=== PATIENT | male | born 1950 | race Caucasian/White ===

== ENCOUNTER 2020-05-26 20:20 | Inpatient (IN) | payer BC ==
[~2020-05-26] VITALS: Ht 167.6 cm; Wt 72.6 kg
[2020-05-26] MEDS ORDERED: ACCU-CHEK COMFORT CURVE STRIP VI ONE (20:45)
[2020-05-26 22:26] LABS: Basophils # (auto) 0 10 ^3/uL (0-0.2); Basophils % (auto) 0.4 % (0.0-2.0); Eosinophils # (auto) 0 10 ^3/uL (0-0.8); Eosinophils % (auto) 0.1 % (0.0-7.0); Hematocrit 39.9 % (41.0-53.0); Hemoglobin 13.1 g/dL (13.5-17.5); Lymphocytes # (auto) 0.7 10 ^3/uL (0.4-5.4); Lymphocytes % (auto) 6.1 % (10.0-50.0); Mean Corpuscular Hemoglobin 31.2 pg (28.0-32.0); Mean Corpuscular Hgb Conc. 32.8 g/dL (32.0-36.0); Monocytes # (auto) 0.5 10 ^3/uL (0-1.3); Monocytes % (auto) 4.7 % (0.0-12.0); Neutrophils # (auto) 9.6 10 ^3/uL (1.6-8.6); Neutrophils % (auto) 88.7 % (37.0-80.0); Platelet Count (auto) 349 10^3/uL (140-450); Red Cell Distribution Width 15.8 % (11.8-14.3); White Blood Cell 10.8 10^3/uL (4.4-10.8)
[2020-05-26 22:46] LABS: Albumin 2.2 g/dL (3.4-5.0); Calcium 8.9 mg/dL (8.5-10.1); Potassium 4.7 mmol/L (3.5-5.1)
[2020-05-26 22:50] LABS: BUN/Creatinine Ratio 20.9; Bilirubin, Total 0.2 mg/dL (0.2-1.0); Total Protein 7.5 g/dL (6.4-8.2)
[2020-05-26] MEDS ORDERED: LIDOCAINE 1% HCL (LOCAL ANESTH.) INJ 20ML MDV ONE (22:56)
[2020-05-26] MEDS ORDERED: BACITRACIN TOP OINT 1 UD PKG TOP ONE (22:59)
[2020-05-26] MEDS ORDERED: NEOMYCIN-BACITRACIN-POLYM UNITDOSE PKG TOP OINT TOP ONE (23:00)
[2020-05-26 23:57] LABS: INR 1.14 (0.9-1.15); Partial Thromboplastin Time 29.9 sec (23.0-31.2)
[2020-05-27] MEDS ORDERED: DOCUSATE SOD 100 MG CAP PO PRN (01:30)
[2020-05-27] MEDS ORDERED: MORPHINE SULF INJ 2 MG/ML SYRINGE 1ML IV PRN (01:30)
[2020-05-27] MEDS ORDERED: ONDANSETRON HCL 4 MG/2 ML VIAL IV PRN (01:30)
[2020-05-27] MEDS ORDERED: NITROGLYCERIN 0.4 MG SL TAB SL PRN (01:30)
[2020-05-27] MEDS ORDERED: ACETAMINOPHEN 325 MG TAB PO PRN (01:30)
[2020-05-27] MEDS ORDERED: HYDROcodone-ACET 5/325MG TAB PO PRN (01:30)
[2020-05-27] MEDS ORDERED: MORPHINE SULFATE 4 MG/ML SYR/VIAL IV PRN (01:30)
[2020-05-27] MEDS ORDERED: BACITRACIN TOP OINT 1 UD PKG TOP ONE (02:45)
[2020-05-27] MEDS ORDERED: LIDOCAINE 1% HCL (LOCAL ANESTH.) INJ 20ML MDV ID ONE (02:45)
[2020-05-27] MEDS: SODIUM CHLOR 0.9% PF (SALINE LOCK) 10ML VIAL/SYR IV SCH ×3 (06:00→22:31)
[2020-05-27] MEDS: NEOMYCIN-BACITRACIN-POLYM 15GM TOP OINT TOP SCH ×3 (06:45→22:32)
[2020-05-27] MEDS: ASCORBIC ACID 500 MG TAB PO SCH ×2 (13:46→22:32)
[2020-05-27] MEDS: MULTIPLE VITAMIN TAB PO SCH (13:47)
[2020-05-27] MEDS: ZINC SULFATE 220mg CAP or TAB PO SCH (13:47)
[2020-05-27] MEDS: FAMOTIDINE 20 MG TAB PO SCH ×2 (13:47→22:32)
--- NOTE | 2020-05-27 18:53 | NUR ---
WOUND CARE NOTE: IN TO SEE PATIENT PER WOUND CARE CONSULT REQUEST. PATIENT IN ER BED 23, TELE STATUS, AWAITING AVAILABLE BED. [facility] WITH DIAGNOSIS OF SYNCOPE. HE IS S/P MECHANICAL FALL, RENDERING PATIENT WITH A LACERATION TO THE LEFT PERIORBITAL EYE. LACERATION IS WELL APPROXIMATED, SUTURED CLOSED. THERE IS NO DRAINAGE NOTED, LEFT OPEN TO AIR. SKIN/WOUND CARE PLAN IMPLEMENTED D/T ALEXANDR SCORE OF 15. RECOMMEND: Q SHIFT WOUND MONITORING OF SUTURED LACERATION TO LEFT PERORBITAL EYE, LEAVE OPEN TO AIR. NO FURTHER WOUND CARE MONITORING NEEDED AT THIS TIME. Addendum: 05/27/20 at 1856 by Marlen Colbert RN Amended: Links added.
[2020-05-27 23:39] LABS: % Iron Saturation 14.5 % (20-55)
[2020-05-27 23:47] LABS: Ferritin 927.5 ng/mL (10-322)
[2020-05-28] MEDS: NEOMYCIN-BACITRACIN-POLYM 15GM TOP OINT TOP SCH ×3 (06:00→22:24)
[2020-05-28] MEDS: SODIUM CHLOR 0.9% PF (SALINE LOCK) 10ML VIAL/SYR IV SCH ×3 (06:15→22:24)
[2020-05-28 07:12] LABS: Basophils # (auto) 0 10 ^3/uL (0-0.2); Basophils % (auto) 0.2 % (0.0-2.0); Eosinophils # (auto) 0 10 ^3/uL (0-0.8); Eosinophils % (auto) 0.1 % (0.0-7.0); Hematocrit 38.4 % (41.0-53.0); Hemoglobin 12.4 g/dL (13.5-17.5); Lymphocytes # (auto) 1.3 10 ^3/uL (0.4-5.4); Lymphocytes % (auto) 11.9 % (10.0-50.0); Mean Corpuscular Hemoglobin 30.7 pg (28.0-32.0); Mean Corpuscular Hgb Conc. 32.3 g/dL (32.0-36.0); Monocytes # (auto) 0.8 10 ^3/uL (0-1.3); Monocytes % (auto) 7.4 % (0.0-12.0); Neutrophils # (auto) 8.8 10 ^3/uL (1.6-8.6); Neutrophils % (auto) 80.4 % (37.0-80.0); Platelet Count (auto) 294 10^3/uL (140-450); Red Blood Cells 4.04 10^6/uL (4.5-5.90); Red Cell Distribution Width 15.8 % (11.8-14.3); White Blood Cell 10.9 10^3/uL (4.4-10.8)
[2020-05-28 07:27] LABS: Calcium 8.6 mg/dL (8.5-10.1); Magnesium 2.7 mg/dL (1.6-2.6); Potassium 4.1 mmol/L (3.5-5.1)
[2020-05-28 07:31] LABS: BUN/Creatinine Ratio 21.7; Bilirubin, Total 0.4 mg/dL (0.2-1.0); Total Protein 6.6 g/dL (6.4-8.2)
[2020-05-28] MEDS ORDERED: LORazepam 2MG/ML-1ML VIAL IV PRN (08:30)
[2020-05-28] MEDS: GABAPENTIN 100 MG CAP PO SCH ×2 (08:30→22:23)
[2020-05-28] MEDS: MULTIPLE VITAMIN TAB PO SCH (09:51)
[2020-05-28] MEDS: FAMOTIDINE 20 MG TAB PO SCH ×2 (09:51→22:23)
[2020-05-28] MEDS: ZINC SULFATE 220mg CAP or TAB PO SCH (09:51)
[2020-05-28] MEDS: ASCORBIC ACID 500 MG TAB PO SCH ×2 (09:51→22:23)
[2020-05-28] MEDS ORDERED: GABAPENTIN 100 MG CAP PO SCH (10:00)
[2020-05-28 10:31] LABS: Folate (Folic Acid) 15.92 ng/mL (5.38-24)
[2020-05-28 11:00] VITALS: BP 114/69
[2020-05-28 12:00] VITALS: BP 90/55
--- NOTE | 2020-05-28 12:27 | NUR ---
MD TOTH PAGED PER HIS CONSULTATION. I SPOKE WITH BENJAMIN FROM HIS [employer]. Addendum: 05/28/20 at 1229 by PRICILA BROWN RN Amended: Links added.
[2020-05-28 13:00] VITALS: BP 93/46
[2020-05-28] MEDS ORDERED: ATROPINE SULF 1 MG/10ml SYR IV ONE (13:30)
[2020-05-28 15:00] VITALS: BP 102/56
--- NOTE | 2020-05-28 20:05 | NUR ---
Telemetry admit from BALAJI MCKAY admitted to Telemetry unit after telephone report received. Patient oriented to Anisa Fernandez, primary RN, unit, room, bed, and unit policies regarding patient care and visiting hours. Patient now on continuous telemetry monitoring, tele box # 65 and telemetry reading on arrival to unit is sinus 63. Patient placed on bedside oxygen, weighed by bedscale and encouraged to call if they need something. All questions and concerns addressed, patient verbalized understanding. Note:
[2020-05-28 20:30] VITALS: BP 100/61
[2020-05-28 22:00] VITALS: BP 100/61
[2020-05-29] MEDS ORDERED: PNEUMOCOCCAL VACC POLYS 25 MCG/0.5 ML VIAL IM ONE (03:30)
[2020-05-29] MEDS ORDERED: INFLUENZA QUAD 2020-2021 0.5 ML SYRG IM ONE (03:30)
[2020-05-29 05:00] VITALS: BP 97/62
[2020-05-29] MEDS: NEOMYCIN-BACITRACIN-POLYM 15GM TOP OINT TOP SCH ×2 (06:42→15:13)
[2020-05-29] MEDS: SODIUM CHLOR 0.9% PF (SALINE LOCK) 10ML VIAL/SYR IV SCH ×2 (06:42→15:12)
--- NOTE | 2020-05-29 08:00 | NUR ---
Opening Shift Note Assumed care of patient, awake and alert sitting up in bed eating breakfast. No S/S of distress/SOB or pain. Instructed on POC and to call for assist PRN, will continue to monitor for changes Q1hr and PRN.
[2020-05-29 09:00] VITALS: BP 86/48
[2020-05-29] MEDS: MULTIPLE VITAMIN TAB PO SCH (09:14)
[2020-05-29] MEDS: FAMOTIDINE 20 MG TAB PO SCH (09:15)
[2020-05-29] MEDS: ZINC SULFATE 220mg CAP or TAB PO SCH (09:15)
[2020-05-29] MEDS: ASCORBIC ACID 500 MG TAB PO SCH (09:15)
[2020-05-29 13:00] VITALS: BP 102/58
--- NOTE | 2020-05-29 13:37 | NUR ---
Assessment Patient is a 70-year-old male who is alert and oriented. Prior to admission patient lived home with family and functioned independently. Patient can care for his own ADL's. Patient has home oxygen for home use. Family will bring oxygen portable to hospital upon d/c day. Patient will return home to his prior living arrangements post discharge and family will transport him home. Informed patient he has the right to participate in all discharge planning. Patient verbalized understanding. Addendum: 05/29/20 at 1342 by ORTIZ MA Amended: Links added.
[2020-05-29 17:00] VITALS: BP 94/64
--- NOTE | 2020-05-29 17:20 | NUR ---
Cardiology Clearance As per Dr. Nicole, Dr. Martinez cleared patient for discharge. Awaiting Neurology clearance from Dr. Larson.
--- NOTE | 2020-05-29 17:40 | NUR ---
Neurology paged Dr. Larson states he will see patient on unit.
--- NOTE | 2020-05-29 18:50 | NUR ---
Neurology Clearance Dr. Larson cleared patient for discharge.
[2020-05-29 19:45] VITALS: BP 94/64
--- NOTE | 2020-05-29 21:30 | NUR ---
PATIENT DISCHARGED PATIENT DISCHARGED WITH ALL FOLLOW UP INSTRUCTIONS. EDUCATION PROVIDED FOR CARDIAC HEALTH WITH INCLUDED EASY TO READ PRINT OUTS. PATIENT VERBALIZES UNDERSTANDING. SPOKE WITH DAUGHTER WHO LIVES IN [place] AND UPDATED HER WITH DISCHARGE AND FOLLOW UP INSTRUCTIONS. SON IS PICKING UP PATIENT IN THEIR PERSONAL VEHICLE WITH HOME OXYGEN. IT IS AFTER HOURS AND MD OFFICE IS CLOSED AT THIS TIME TO SCHEDULE FOLLOW UP APPOINTMENT. ALL BELONGINGS WITH PATIENT. IV REMOVED, APPLIED PRESSURE TO AREA. TELE BOX WALKED TO TELE MONITOR ROOM BY ALBERTINA GOFF. PATIENT TRANSPORTED OUT OF HOSPITAL VIA WHEELCHAIR AND OXYGEN TANK BY ALBERTINA GOFF. PATIENT IS COMFORTABLE. ALL QUESTIONS AND CONCERNS ADDRESSED.
== END 2020-05-29 21:30 | disposition home or self-care (01) | DRG 605 ==
LOC: ER 20:22 → TELE 20:23 → TELE-WESTW 05-28 20:05
PROVIDERS: ADMIT Nurse Practitioner Family; ATTEND Internal Medicine
PROC: 0HQ1XZZ Repair Face Skin, External Approach (ICD-10-PCS; principal; 2020-05-26)
DX: S01.81XA Laceration without foreign body of other part of head, initial encounter (principal); I13.0 Hypertensive heart and chronic kidney disease with heart failure and stage 1 through stage 4 chronic kidney disease, or unspecified chronic kidney disease; I49.8 Other specified cardiac arrhythmias; E88.09 Other disorders of plasma-protein metabolism, not elsewhere classified; F41.9 Anxiety disorder, unspecified; R20.2 Paresthesia of skin; G25.81 Restless legs syndrome; J44.9 Chronic obstructive pulmonary disease, unspecified; N18.9 Chronic kidney disease, unspecified; F17.210 Nicotine dependence, cigarettes, uncomplicated; F32.9 Major depressive disorder, single episode, unspecified; I48.0 Paroxysmal atrial fibrillation; W18.39XA Other fall on same level, initial encounter; I50.9 Heart failure, unspecified; Z82.49 Family history of ischemic heart disease and other diseases of the circulatory system; Y93.89 Activity, other specified; Y92.89 Other specified places as the place of occurrence of the external cause; Y99.8 Other external cause status; T46.2X5A Adverse effect of other antidysrhythmic drugs, initial encounter; Z20.828 Contact with and (suspected) exposure to other viral communicable diseases
CPT/HCPCS: 12011; 36415; 70450; 70551; 72125; 80053; 82607; 82728; 82746; 83540; 83550; 83735; 83880; 84155; 84165; 84443; 84484; 85025; 85610; 85730; 93005; 93306; G0378; J2001

== ENCOUNTER 2020-12-22 21:41 | Emergency (ER) | payer BC ==
[~2020-12-22] VITALS: Ht 167.6 cm; Wt 67.1 kg
[2020-12-22 22:39] LABS: Basophils # (auto) 0.1 10 ^3/uL (0-0.2); Basophils % (auto) 1.3 % (0.0-2.0); Eosinophils # (auto) 0.4 10 ^3/uL (0-0.8); Eosinophils % (auto) 4.9 % (0.0-7.0); Hematocrit 41.5 % (41.0-53.0); Hemoglobin 14.3 g/dL (13.5-17.5); Lymphocytes % (auto) 22.2 % (10.0-50.0); Mean Corpuscular Hemoglobin 33.7 pg (28.0-32.0); Mean Corpuscular Hgb Conc. 34.4 g/dL (32.0-36.0); Mean Corpuscular Volume 98.1 fL (80.0-100.0); Monocytes # (auto) 1.1 10 ^3/uL (0-1.3); Monocytes % (auto) 12.2 % (0.0-12.0); Neutrophils # (auto) 5.3 10 ^3/uL (1.6-8.6); Neutrophils % (auto) 59.4 % (37.0-80.0); Platelet Count (auto) 286 10^3/uL (140-450); Red Blood Cells 4.23 10^6/uL (4.5-5.90); Red Cell Distribution Width 15.4 % (11.8-14.3); White Blood Cell 8.9 10^3/uL (4.4-10.8)
[2020-12-22 23:00] LABS: Anion Gap 8 (5-15); Calcium 9.2 mg/dL (8.5-10.1); Carbon Dioxide 25 mmol/L (21-32); Chloride 106 mmol/L (98-107); Glucose 145 mg/dL (74-106); Potassium 4.1 mmol/L (3.5-5.1); Sodium 139 mmol/L (136-145)
[2020-12-22 23:08] LABS: Alanine Aminotransferase 14 U/L (16-61); Alkaline Phosphatase 75 U/L (45-117); Aspartate Aminotransferase 21 U/L (15-37); BUN/Creatinine Ratio 11.6; Bilirubin, Total 0.4 mg/dL (0.2-1.0); Blood Urea Nitrogen 13 mg/dL (7-18); GFR African American 83 mL/min; GFR Non-African American 69 mL/min; Total Protein 7.4 g/dL (6.4-8.2)
[2020-12-22] MEDS ORDERED: SODIUM CHLORIDE 0.9% 1,000 ML IV ONE (23:15)
[2020-12-23] MEDS ORDERED: SODIUM CHLORIDE 0.9% 1,000 ML IV ONE (03:15)
[2020-12-23] MEDS ORDERED: ALBUTEROL SULF 2.5 MG/0.5ML(0.5%) NEB SOLN NEB ONE (05:30)
[2020-12-23] MEDS ORDERED: IPRATROPIUM BROM 0.5 MG/2.5ML INH SOL NEB ONE (05:30)
[2020-12-23 05:58] VITALS: BP 106/65
== END 2020-12-23 06:45 | disposition home or self-care (01) ==
LOC: ER 21:41
DX: J44.9 Chronic obstructive pulmonary disease, unspecified (principal); I10 Essential (primary) hypertension; F17.210 Nicotine dependence, cigarettes, uncomplicated; I45.10 Unspecified right bundle-branch block
CPT/HCPCS: 36415; 36600; 71045; 80053; 82805; 83735; 83880; 84484; 85025; 85049; 93005; 94640; 96360; 96361; 99285; J7644

== ENCOUNTER 2023-06-30 20:29 | Emergency (ER) | payer BC ==
[~2023-06-30] VITALS: Ht 165.1 cm; Wt 56.0 kg
[2023-06-30 21:36] LABS: Basophils # (auto) 0 10 ^3/uL (0-0.2); Basophils % (auto) 0.6 % (0.0-2.0); Eosinophils # (auto) 0 10 ^3/uL (0-0.8); Eosinophils % (auto) 0.2 % (0.0-7.0); Hematocrit 40.6 % (41.0-53.0); Hemoglobin 13.6 g/dL (13.5-17.5); Lymphocytes # (auto) 0.5 10 ^3/uL (0.4-5.4); Lymphocytes % (auto) 7.6 % (10.0-50.0); Mean Corpuscular Hemoglobin 32.7 pg (28.0-32.0); Mean Corpuscular Hgb Conc. 33.4 g/dL (32.0-36.0); Mean Corpuscular Volume 97.8 fL (80.0-100.0); Monocytes # (auto) 0.9 10 ^3/uL (0-1.3); Monocytes % (auto) 14.1 % (0.0-12.0); Neutrophils # (auto) 5.2 10 ^3/uL (1.6-8.6); Neutrophils % (auto) 77.5 % (37.0-80.0); Nucleated Red Blood Cells % 0.1 %; Red Blood Cells 4.15 10^6/uL (4.5-5.90); Red Cell Distribution Width 13.8 % (11.8-14.3); White Blood Cell 6.7 10^3/uL (4.4-10.8)
[2023-06-30 21:42] LABS: INR 1.19 (0.9-1.15); Partial Thromboplastin Time 33.2 SEC (24.5-34.5); Prothrombin Time 12.4 sec (9.3-11.8)
[2023-06-30 21:43] LABS: Alanine Aminotransferase 13 U/L (7-40); Albumin 4.1 g/dL (3.2-4.8); Alkaline Phosphatase 69 U/L (46-116); Anion Gap 8 (5-15); Aspartate Aminotransferase 20 U/L (13-40); BUN/Creatinine Ratio 9.6 (10.0-20.0); Blood Urea Nitrogen 12 mg/dL (9-23); Calcium 9.4 mg/dL (8.5-10.1); Carbon Dioxide 24 mmol/L (20-30); Chloride 101 mmol/L (98-107); Glucose 104 mg/dL (74-106); Potassium 4.1 mmol/L (3.5-5.1); Sodium 133 mmol/L (136-145)
[2023-06-30 21:44] LABS: Bilirubin, Total 0.4 mg/dL (0.2-1.0); Total Protein 7.2 g/dL (5.7-8.2)
[2023-06-30] MEDS ORDERED: ALBUTEROL SULF 2.5 MG/0.5ML(0.5%) NEB SOLN NEB ONE (22:30)
[2023-06-30] MEDS ORDERED: IPRATROPIUM BROM 0.5 MG/2.5ML INH SOL NEB ONE (22:30)
[2023-06-30 23:39] VITALS: TEMP 97.8
[2023-07-01] MEDS ORDERED: PRED20TA2 PO (00:05)
[2023-07-01] MEDS ORDERED: AZITTAB PO (00:05)
[2023-07-01] MEDS ORDERED: ALBU1.258 IN (00:05)
[2023-07-01 00:29] VITALS: BP 131/83; PULSE 88; RESP 24; O2SAT 94
[2023-07-01 00:31] LABS: Urine Bacteria NONE SEEN /hpf (None Seen); Urine Blood Negative /uL (Negative); Urine Clarity Clear (Clear); Urine Color Yellow (Yellow); Urine Protein, UAD Negative (Negative); Urine Specific Gravity 1.012 (1.001-1.035); Urine Urobilinogen Normal (Negative); Urine WBC 1 /hpf (0 - 3); Urine pH 6.5 (5.0-8.0)
== END 2023-07-01 00:33 | disposition home or self-care (01) ==
LOC: ER 20:29
DX: J44.9 Chronic obstructive pulmonary disease, unspecified (principal); J20.9 Acute bronchitis, unspecified; I10 Essential (primary) hypertension; F17.210 Nicotine dependence, cigarettes, uncomplicated; R07.89 Other chest pain
CPT/HCPCS: 36415; 71045; 80053; 81001; 83880; 84484; 85025; 85610; 85730; 93005; 94640; 99285; J7644

== ENCOUNTER 2023-10-19 14:13 | Emergency (ER) | payer BC ==
[~2023-10-19] VITALS: Ht 165.1 cm; Wt 53.3 kg
[~2023-10-19 14:13] MED LIST: ALBU1.258 IN; AZITTAB PO; PRED20TA2 PO
[2023-10-19 15:34] LABS: Basophils # (auto) 0 10 ^3/uL (0-0.2); Basophils % (auto) 0.3 % (0.0-2.0); Eosinophils # (auto) 0 10 ^3/uL (0-0.8); Eosinophils % (auto) 0.1 % (0.0-7.0); Hematocrit 35.1 % (41.0-53.0); Hemoglobin 11.9 g/dL (13.5-17.5); Lymphocytes # (auto) 1.7 10 ^3/uL (0.4-5.4); Lymphocytes % (auto) 12.6 % (10.0-50.0); Mean Corpuscular Hemoglobin 33.2 pg (28.0-32.0); Mean Corpuscular Hgb Conc. 33.9 g/dL (32.0-36.0); Monocytes # (auto) 1.6 10 ^3/uL (0-1.3); Monocytes % (auto) 12.2 % (0.0-12.0); Neutrophils # (auto) 9.9 10 ^3/uL (1.6-8.6); Neutrophils % (auto) 74.8 % (37.0-80.0); Red Blood Cells 3.58 10^6/uL (4.5-5.90); Red Cell Distribution Width 15.2 % (11.8-14.3); White Blood Cell 13.2 10^3/uL (4.4-10.8)
[2023-10-19 15:53] LABS: Alanine Aminotransferase < 9 U/L (7-40); Albumin 4.4 g/dL (3.2-4.8); Alkaline Phosphatase 66 U/L (46-116); Anion Gap 7 (5-15); Aspartate Aminotransferase 21 U/L (13-40); BUN/Creatinine Ratio 19.4 (10.0-20.0); Bilirubin, Total 0.8 mg/dL (0.2-1.0); Blood Urea Nitrogen 19 mg/dL (9-23); Calcium 9.5 mg/dL (8.7-10.4); Carbon Dioxide 25 mmol/L (20-30); Chloride 102 mmol/L (98-107); Glucose 101 mg/dL (74-106); Lipase 35 U/L (12-53); Potassium 3.8 mmol/L (3.5-5.1); Sodium 134 mmol/L (136-145); Total Protein 7.7 g/dL (5.7-8.2)
[2023-10-19 17:20] LABS: INR 1.06 (0.9-1.15); Partial Thromboplastin Time 32.2 SEC (24.5-34.5); Prothrombin Time 11.1 sec (9.3-11.8)
[2023-10-19 17:57] VITALS: BP 118/70; PULSE 84; RESP 20; TEMP 98.8; O2SAT 97
[2023-10-19 18:15] VITALS: PULSE 85
== END 2023-10-19 18:43 | disposition short-term general hospital (02) ==
LOC: ER 14:13
DX: I72.2 Aneurysm of renal artery (principal); F17.210 Nicotine dependence, cigarettes, uncomplicated; J44.9 Chronic obstructive pulmonary disease, unspecified; I10 Essential (primary) hypertension
CPT/HCPCS: 36415; 71045; 71260; 74176; 74177; 80053; 83690; 84484; 85025; 85610; 85730; 86850; 86900; 86901; 93005; 99285; Q9967

== ENCOUNTER 2025-01-04 12:15 | Emergency (ER) | payer BC ==
[~2025-01-04] VITALS: Ht 165.1 cm; Wt 55.8 kg
--- NOTE | 2025-01-04 13:03 | ED.PDOC ---
History of Present Illness HPI Comments 74-year-old old with PMHx AAA presents with a chief complaint of abdominal pain x onset this morning. Patient states that he had a verbal argument with his spouse this morning and that it caused his blood pressure to rise and started to feel pain on his left abdominal region. Patient has a stent on the left side of abdomen due to his AAA. Surgery for the stent placement was September 2019. Patient wants to check to make sure his AAA is okay. Chief Complaint: Abdominal Pain Time Seen by MD: 12:57 Primary Care Provider: UNKNOWN Reviewed Notes: Medications, Allergies Allergies: Coded Allergies: NO KNOWN ALLERGIES (Unverified , 12/02/15) Home Meds Active Scripts Albuterol Sulfate (Albuterol Sulfate) 1.25 Mg/3 Ml Neb, 1.25 MG IN TID, #30 INH Prov:DUSTY DALTONP 07/01/23 Prednisone (Prednisone) 20 Mg Tab, 20 MG PO DAILY for 5 Days, #5 MG Prov:DUSTY DALTON 07/01/23 Azithromycin (Zithromax Z-Wilman) 250 Mg Tab, 250 MG PO DAILY for 5 Days, #5 TAB Prov:DUSTY DALTON 07/01/23 Information Source: Patient Mode of Arrival: Ambulatory Severity: Moderate Timing: Hours Duration: Since onset Prehospital treatment: None Past Medical History PAST MEDICAL HISTORY: COPD, HTN Surgical History (Other): ABDOMINAL AORTA STENT Family History Family History: Reviewed,noncontributory to illness Social History Smoker: Cigarettes, Greater Than 1 Pack/Day Alcohol: Denies ETOH Use Drugs: Denies Drug Use Lives In: Home Constitutional: denies: chills, diaphoresis, fatigue, fever, malaise, sweats, weakness, others EENTM: denies: blurred vision, double vision, ear bleeding, ear discharge, ear drainage, ear pain, ear ringing, eye pain, eye redness, hearing loss, mouth pain, mouth swelling, nasal discharge, nose bleeding, nose congestion, nose pain, photophobia, tearing, throat pain, throat swelling, voice changes, others Respiratory: denies: cough, hemoptysis, orthopnea, SOB at rest, shortness of b reath, SOB with excertion, stridor, wheezing, others Cardiovascular: denies: chest pain, dizzy spells, diaphoresis, Dyspnea on exertion, edema, irregular heart beat, left arm pain, lightheadedness, palpitations, PND, syncope, others Gastrointestinal: reports: abdominal pain; denies: abdomen distended, blood streaked bowels, constipated, diarrhea, dysphagia, difficulty swallowing, hematemesis, melena, nausea, poor appetite, poor fluid intake, rectal bleeding, rectal pain, vomiting, others Genitourinary: denies: burning, dysuria, flank pain, frequency, hematuria, incontinence, penile discharge, penile sore, pain, testicle pain, testicle swelling, urgency, others Neurological: denies: dizziness, fainting, headache, left sided numbness, left sided weakness, numbness, paresthesia, pre-existing deficit, right sided numbness, right sided weakness, seizure, speech problems, tingling, tremors, weakness, others Musculoskeletal: denies: back pain, gout, joint pain, joint swelling, muscle pain, muscle stiffness, neck pain, others Integumetry: denies: bruises, change in color, change in hair/nails, dryness, laceration, lesions, lumps, rash, wounds, others Allergic/Immunocompromised: denies: Difficulty Healing, Frequent Infections, Hives, Itching, others Hematologic/Lymphatic: denies: anemia, blood clots, easy bleeding, easy bruisi ng, swollen glands, others Endocrine: denies: excessive hunger, excessive sweating, excessive thirst, exce ssive urination, flushing, intolerance to cold, intolerance to heat, unexplained weight gain, unexplained weight loss, others Psychiatric: denies: anxiety, bipolar disorder, depression, hopeless, panic disorder, schizophrenia, sleepless, suicidal, others All Other Systems: Reviewed and Negative Physical Exam General Appearance: No Apparent Distress, Normal HEENT: Normal ENT Inspection, Pharynx Normal, TMs Normal Neck: Full Range of Motion, Non-Tender, Normal, Normal Inspection Respiratory: Chest Non-Tender, Lungs Clear, No Accessory Muscle Use, No Respiratory Distress, Normal Breath Sounds Cardiovascular: No Edema, No JVD, No Murmur, No Gallop, Normal Peripheral Pulses, Regular Rate/Rhythm Breast Exam: Deferred Gastrointestinal: No Organomegaly, Non Tender, No Pulsatile Mass, Normal Bowel Sounds, Soft Genitalia: Deferred Pelvic: Deferred Rectal: Deferred Extremities: No calf tenderness, Normal capillary refill, Normal inspection, Normal range of motion, Non-tender, No pedal edema Musculoskeletal : Apperance: Normal 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 Was a procedure done?: No Differential Dx Considerations may include: Acute diverticulitis acute cystitis gastroenteritis viral syndrome X-Ray, Labs, Meds, VS Vital Signs Date Time Temp Pulse Resp B/P (MAP) Pulse Ox O2 Delivery O2 Flow Rate FiO2 01/04/25 12:59 98.1 80 18 147/76 (99) 90 98.1 Lab Test 01/04/25 14:03 01/04/25 13:15 Range/Units Troponin I High Sensitivity 5 5 </=54 ng/L White Blood Count 7.9 4.4-10.8 10^3/uL Red Blood Count 4.75 4.5-5.90 10^6/uL Hemoglobin 16.2 13.5-17.5 g/dL Hematocrit 47.2 41.0-53.0 % Mean Corpuscular Volume 99.6 80.0-100.0 fL Mean Corpuscular Hemoglobin 34.2 H 28.0-32.0 pg Mean Corpuscular Hemoglobin Concent 34.4 32.0-36.0 g/dL Red Cell Distribution Width 14.1 11.8-14.3 % Platelet Count 200 140-450 10^3/uL Mean Platelet Volume 7.7 6.9-10.8 fL Neutrophils (%) (Auto) 68.9 37.0-80.0 % Lymphocytes (%) (Auto) 20.2 10.0-50.0 % Monocytes (%) (Auto) 10.0 0.0-12.0 % Eosinophils (%) (Auto) 0.5 0.0-7.0 % Basophils (%) (Auto) 0.4 0.0-2.0 % Neutrophils # (Auto) 5.4 1.6-8.6 10 ^3/uL Lymphocytes # (Auto) 1.6 0.4-5.4 10 ^3/uL Monocytes # (Auto) 0.8 0-1.3 10 ^3/uL Eosinophils # (Auto) 0 0-0.8 10 ^3/uL Basophils # (Auto) 0 0-0.2 10 ^3/uL Nucleated Red Blood Cells 0.1 % Sodium Level 141 136-145 mmol/L Potassium Level 4.1 3.5-5.1 mmol/L Chloride Level 107 98-107 mmol/L Carbon Dioxide Level 24 20-31 mmol/L Anion Gap 10 5-15 Blood Urea Nitrogen 13 9-23 mg/dL Creatinine 1.26 0.700-1.30 mg/dL Glomerular Filtration Rate Calc 60 >90 mL/min BUN/Creatinine Ratio 10.3 10.0-20.0 Serum Glucose 86 74-106 mg/dL Calcium Level 10.6 H 8.7-10.4 mg/dL Time of 1ST Reevaluation: 13:27 Reevaluation 1ST: Unchanged Patient Education/Counseling: Diagnosis, Treatment, Need For Follow Up Family Education/Counseling: No Family Present SEPSIS Sepsis Screen Physician Orders Urinalysis (01/04/25 13:02) Chest Portable (01/04/25 13:02) Ct Ab Pel With Iv Con Only (01/04/25 13:02) Vital Signs Date Time Temp Pulse Resp B/P (MAP) Pulse Ox O2 Delivery O2 Flow Rate FiO2 01/04/25 12:59 98.1 80 18 147/76 (99) 90 98.1 Laboratory Tests Test 01/04/25 13:15 White Blood Count 7.9 10^3/uL (4.4-10.8) Departure 1 Departure Time of Disposition: 16:53 (Patient presented with abdominal pain that was concerning for possible appendicits, gastritis, cholecystitis, colitis, gastroenteritis, sbo, or orther possible surgical emergency. Data: 1. I ordered and reviewed the result of at least 3 labs including a CBC, BMP, and Urinalysis. 2. I independently interpreted the following tests: CT Abdoment and Pelvis is concerning for AAA status post repair .Risk:This patient has a high risk of morbidity due to further diagnostic testing or treatment and may suffer from an acute abdominal process disorder. Workup reveals AAA status post repair and intractable abdominal pain and patient should be admitted for further workup. a nd possible expert consultation. ) Impression: Primary Impression: Intractable abdominal pain Additional Impression: Status post AAA (abdominal aortic aneurysm) repair Disposition: ADMITTED INPATIENT Admit to: Med Surg Condition: Guarded Critical Care Note Critical Care Time?: Yes Critical care comment: Intractable abdominal pain Authorized and Performed by: Андрей Castillo MD Total critical care time: Approximately 38 minutes Due to a high probability of clinically significant, life threatening deterioration, the patient required my highest level of preparedness to intervene emergently and I personally spent this critical care time directly and personally managing the patient. This critical care time included obtaining a history; examining the patient; pulse oximetry; ordering and review of studies; arranging urgent treatment with development of a management plan; evaluation of patient's response to treatment; frequent reassessment; and, discussions with other providers. This critical care time was performed to assess and manage the high probability of imminent, life-threatening deterioration that could result in multi-organ failure. It was exclusive of separately billable procedures and treating other patients and teaching time. Please see my other sections and the rest of the note for further information on patient assessment and treatment. Stability Stability form required: No Heart Score Heart Score: Heart Score Response (Comments) Value History N/A 0 EKG N/A 0 Age N/A 0 Risk Factors N/A 0 Troponin N/A 0 Total 0 I personally scribed for АНДРЕЙ CASTILLO MD ([email or web address]) on 01/04/25 at 13:03. Electronically submitted by Brodie Ren ([email or web address]). АНДРЕЙ CASTILLO MD Jan 04, 2025 13:03
[2025-01-04 13:34] LABS: Hematocrit 47.2 % (41.0-53.0); Hemoglobin 16.2 g/dL (13.5-17.5); Mean Corpuscular Hemoglobin 34.2 pg (28.0-32.0); Mean Corpuscular Volume 99.6 fL (80.0-100.0); Nucleated Red Blood Cells % 0.1 %
[2025-01-04 13:45] LABS: Chloride 107 mmol/L (98-107); Potassium 4.1 mmol/L (3.5-5.1); Sodium 141 mmol/L (136-145)
[2025-01-04 13:46] LABS: Anion Gap 10 (5-15); Carbon Dioxide 24 mmol/L (20-31)
[2025-01-04 13:48] LABS: Calcium 10.6 mg/dL (8.7-10.4)
[2025-01-04 13:51] LABS: BUN/Creatinine Ratio 10.3 (10.0-20.0); Blood Urea Nitrogen 13 mg/dL (9-23); Glucose 86 mg/dL (74-106)
--- NOTE | 2025-01-04 14:00 | ECG ---
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
[2025-01-04] MEDS: IOHEXOL 300 MG/ML 100ML BOTTLE IJ ONE (14:38)
--- NOTE | 2025-01-04 14:57 | DVH ---
CHEST RADIOGRAPH Indication: llq pain Technique: Single frontal view of the chest was obtained COMPARISON: XY CHEST XRAY 1 VIEW on DOS: 10/19/23, XY CHEST PORTABLE on DOS: 06/30/23, CHEST XRAY 1 VIEW on DOS: 12/23/20, CHEST XRAY 1 VIEW on DOS: 06/14/19 FINDINGS: Lines and Tubes: None Lungs: No focal airspace consolidation. Numerous calcified granulomas. Pleura: No effusion. No pneumothorax. Cardiomediastinal contours: Unremarkable Bones: Unremarkable IMPRESSION: No acute disease.
--- NOTE | 2025-01-04 15:19 | DVH ---
CT CT AB PEL WITH IV CON ONLY INDICATION: llq pain EXAM DATE: 01/04/2025 02:35 PM COMPARISON: CT CT CHEST/AB/PL W CON- IV ONLY on DOS: 10/19/23 RADIATION DOSE: CTDIvol: 7 mGy, DLP: 329 mGy*cm PROCEDURE: Helical CT images were obtained of the abdomen and pelvis with IV contrast Sagittal and co chase reconstructions are provided. ORAL CONTRAST: None. ADDITIONAL IMAGES / REFORMATS: None All CT s cans at this medical facility are performed using dose modulation techniques as appropriate to a perf ormed exam including the following: Automated exposure control was utilized; adjustment of the MA and /or KV according to patient size; and use of iterative reconstruction technique. FINDINGS: LUNG BASE: Right basilar consolidation. Multiple bilateral calcified granulomas. LIVER: Normal. GALLBLADDER AND BILIARY TREE: No calcified gallstones. Normal caliber wall. No intra- or extrahepatic biliary ductal dilation. PANCREAS: Punctate calcifcations in the pancreatic head could be from prior episodes of pancreatitis. SPLEEN: Normal. BOWEL: Normal. Appendix appears normal. ADRENALS: Normal. KIDNEYS AND URETER: Right kidney cortical scarring is seen. BLADDER: A calero is seen in the bladder with thickened triplett. REPRODUCTIVE ORGANS: Normal. LYMPH NODES:No lymphadenopathy. PERITONEUM: No ascites or free air. No other fluid collection. VESSELS: Interval placement of an aortic endograft due to prior abdominal aortic aneurysm rupture. Ab dominal aortic aneurysm smaller in size compared to prior, now measures 11 cm in widest dimension. Cu rvilinear dense material within the aneurysm sac is nonspecific and could be layering heme products. RETROPERITONEUM: Normal. ABDOMINAL WALL: Normal. BONES: Scattered osseous degenerative changes are noted. IMPRESSION: Interval placement of an aortic endograft due to prior abdominal aortic aneurysm rupture. Abdominal aortic aneurysm smaller in size compared to prior, now measures 11 cm in widest dimension. Curvilinear dense material within the aneurysm sac is nonspecific and could be layering heme products .
[2025-01-04] MEDS: SODIUM CHLORIDE 0.9% 1,000 ML IV ONE (17:22)
[2025-01-04] MEDS: MORPHINE SULFATE 4 MG/ML SYR/VIAL IV ONE (17:24)
[2025-01-04] MEDS: ONDANSETRON HCL 4 MG/2 ML VIAL IV ONE (17:25)
[2025-01-04 22:02] VITALS: PULSE 48; RESP 17; O2SAT 96
[2025-01-05 04:33] VITALS: BP 103/60; PULSE 60; RESP 16; TEMP 97.8; O2SAT 92
--- NOTE | 2025-01-05 12:07 | ECG ---
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
== END 2025-01-05 04:40 | disposition home or self-care (01) ==
LOC: ER 12:15
DX: R10.32 Left lower quadrant pain (principal); F17.210 Nicotine dependence, cigarettes, uncomplicated; J44.9 Chronic obstructive pulmonary disease, unspecified; I10 Essential (primary) hypertension; Z86.79 Personal history of other diseases of the circulatory system; Z79.52 Long term (current) use of systemic steroids; Z79.899 Other long term (current) drug therapy; Z95.828 Presence of other vascular implants and grafts
CPT/HCPCS: 36415; 71045; 74177; 80048; 84484; 85025; 93005; 96361; 96374; 96375; 99285; J2270; J2405; J7030; Q9967

== ENCOUNTER 2025-03-22 16:24 | Inpatient (IN) | payer BC ==
[~2025-03-22] VITALS: Ht 165.1 cm; Wt 60.5 kg
--- NOTE | 2025-03-22 16:46 | ECG ---
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
--- NOTE | 2025-03-22 17:45 | ED.PDOC ---
History of Present Illness HPI Comments 75-YEAR-OLD MALE PRESENTS TO THE ER WITH NO PRIOR MEDICAL HISTORY ASSOCIATED WITH A CHIEF COMPLAINT OF SHORTNESS A BREATH. PATIENT REPORTS ON HAVING SHORTNESS BREATH FOR ONE WEEK AND HAS BEEN WORSENING. PATIENT IS A POOR HISTORIAN. DENIES CHILLS, FEVER, N/V/D, CP. NO OTHER ASSOCIATED SYMPTOMS, MODIFIERS, RECENT INJURIES OR SICK CONTACTS PRESENT AT THIS TIME. Chief Complaint: Shortness of Breath Time Seen by MD: 17:45 Primary Care Provider: UNKNOWN Reviewed Notes: Nurses Notes, Medications, Allergies Allergies: Coded Allergies: NO KNOWN ALLERGIES (Unverified , 12/02/15) Home Meds Active Scripts Albuterol Sulfate (Albuterol Sulfate) 1.25 Mg/3 Ml Neb, 1.25 MG IN TID, #30 INH Prov:DUSTY DALTONP 07/01/23 Prednisone (Prednisone) 20 Mg Tab, 20 MG PO DAILY for 5 Days, #5 MG Prov:DUSTY DALTON 07/01/23 Azithromycin (Zithromax Z-Wilman) 250 Mg Tab, 250 MG PO DAILY for 5 Days, #5 TAB Prov:DUSTY DALTON 07/01/23 Information Source: Patient Mode of Arrival: Wheelchair Severity: Moderate Timing: Days Duration: Since onset, Days Prehospital treatment: None Past Medical History PAST MEDICAL HISTORY: COPD, HTN Surgical History: Denies all surgeries Family History Family History: Reviewed,noncontributory to illness, Unknown Social History Smoker: Cigarettes, Greater Than 1 Pack/Day Alcohol: Denies ETOH Use Drugs: Denies Drug Use Lives In: Home Constitutional: denies: chills, diaphoresis, fatigue, fever, malaise, sweats, weakness, others EENTM: denies: blurred vision, double vision, ear bleeding, ear discharge, ear drainage, ear pain, ear ringing, eye pain, eye redness, hearing loss, mouth pain, mouth swelling, nasal discharge, nose bleeding, nose congestion, nose pain, photophobia, tearing, throat pain, throat swelling, voice changes, others Respiratory: reports: shortness of breath; denies: cough, hemoptysis, orthopnea, SOB at rest, SOB with excertion, stridor, wheezing, others Cardiovascular: denies: chest pain, dizzy spells, diaphoresis, Dyspnea on exer tion, edema, irregular heart beat, left arm pain, lightheadedness, palpitations, PND, syncope, others Gastrointestinal: denies: abdomen distended, abdominal pain, blood streaked bowels, constipated, diarrhea, dysphagia, difficulty swallowing, hematemesis, melena, nausea, poor appetite, poor fluid intake, rectal bleeding, rectal pain, vomiting, others Genitourinary: denies: burning, dysuria, flank pain, frequency, hematuria, incontinence, penile discharge, penile sore, pain, testicle pain, testicle swelling, urgency, others Neurological: denies: dizziness, fainting, headache, left sided numbness, left sided weakness, numbness, paresthesia, pre-existing deficit, right sided numbness, right sided weakness, seizure, speech problems, tingling, tremors, weakness, others Musculoskeletal: denies: back pain, gout, joint pain, joint swelling, muscle pain, muscle stiffness, neck pain, others Integumetry: denies: bruises, change in color, change in hair/nails, dryness, laceration, lesions, lumps, rash, wounds, others Allergic/Immunocompromised: denies: Difficulty Healing, Frequent Infections, Hives, Itching, others Hematologic/Lymphatic: denies: anemia, blood clots, easy bleeding, easy bruising, swollen glands, others Endocrine: denies: excessive hunger, excessive sweating, excessive thirst, excessive urination, flushing, intolerance to cold, intolerance to heat, unexplained weight gain, unexplained weight loss, others Psychiatric: denies: anxiety, bipolar disorder, depression, hopeless, panic disorder, schizophrenia, sleepless, suicidal, others All Other Systems: Reviewed and Negative Physical Exam General Appearance: No Apparent Distress, Normal HEENT: Normal ENT Inspection, Pharynx Normal, TMs Normal Neck: Full Range of Motion, Non-Tender, Normal, Normal Inspection Respiratory: Chest Non-Tender, Lungs Clear, No Accessory Muscle Use, No Respiratory Distress, Normal Breath Sounds Cardiovascular: No Edema, No JVD, No Murmur, No Gallop, Normal Peripheral Pulses, Regular Rate/Rhythm Breast Exam: Deferred Gastrointestinal: No Organomegaly, Non Tender, No Pulsatile Mass, Normal Bowel Sounds, Soft Genitalia: Deferred Pelvic: Deferred Rectal: Deferred Extremities: No calf tenderness, Normal capillary refill, Normal inspection, Normal range of motion, Non-tender, No pedal edema Musculoskeletal : Apperance: Normal Neurologic: Alert, bar porter II-XII nml as 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 Was a procedure done?: No EKG EKG : Pulse Rate (adult): 108 [place]: Normal Cardiac Rhythm: ST (WITH IRREGULAR RATE) Block: None Hypertrophy: None ST: Normal Differential Dx Considerations may include: Pneumonia ACS, viral syndrome, electrolyte abnormality, sepsis X-Ray, Labs, Meds, VS Vital Signs Date Time Temp Pulse Resp B/P (MAP) Pulse Ox O2 Delivery O2 Flow Rate FiO2 03/23/25 03:00 81 27 100/61 (74) 95 03/23/25 00:00 66 23 103/57 (72) 93 03/22/25 22:00 68 20 102/52 (69) 92 03/22/25 20:00 76 03/22/25 20:00 76 28 98/57 (71) 93 03/22/25 18:11 90 28 127/58 (81) 95 03/22/25 18:11 91 22 95 Simple Mask* 6 50 03/22/25 17:45 108 03/22/25 16:45 108 03/22/25 16:26 98.4 110 24 103/59 98.4 Lab Test 03/23/25 05:29 03/22/25 22:17 03/22/25 20:57 03/22/25 19:14 Range/Units SARS-CoV-2 Antigen (Rapid) Negative NEGATIVE Urine Color Yellow Yellow Urine Clarity Clear Clear Urine pH 5.5 5.0-9.0 Urine Specific [place] 1.020 1.001-1.035 Urine Protein Trace H Negative Urine Ketones Negative Negative Urine Blood Negative Negative /uL Urine Nitrite 2+ H Negative Urine Bilirubin Negative Negative Urine Urobilinogen Normal Negative mg/dL Urine Leukocyte Esterase Negative Negative /uL Urine RBC <1 0 - 3 /hpf Urine Microscopic WBC 2 0-3 /HPF Urine Squamous Epithelial Cells Few <5 /hpf Urine Amorphous Crystals Few None Seen /hpf Urine Bacteria Few H None Seen /hpf Urine Hyaline Casts Few 0 - 2 /lpf Urine Mucus Few None Seen Urine Glucose Normal Normal mg/dL Troponin I High Sensitivity 5 5 </=54 ng/L Test 03/22/25 18:10 Range/Units White Blood Count 12.2 H 4.4-10.8 10^3/uL Red Blood Count 4.21 L 4.5-5.90 10^6/uL Hemoglobin 14.0 13.5-17.5 g/dL Hematocrit 41.2 41.0-53.0 % Mean Corpuscular Volume 98.0 80.0-100.0 fL Mean Corpuscular Hemoglobin 33.2 H 28.0-32.0 pg Mean Corpuscular Hemoglobin Concent 33.9 32.0-36.0 g/dL Red Cell Distribution Width 13.9 11.8-14.3 % Platelet Count 168 140-450 10^3/uL Mean Platelet Volume 7.6 6.9-10.8 fL Neutrophils (%) (Auto) 76.5 37.0-80.0 % Lymphocytes (%) (Auto) 6.1 L 10.0-50.0 % Monocytes (%) (Auto) 17.0 H 0.0-12.0 % Eosinophils (%) (Auto) 0.1 0.0-7.0 % Basophils (%) (Auto) 0.3 0.0-2.0 % Neutrophils # (Auto) 9.4 H 1.6-8.6 10 ^3/uL Lymphocytes # (Auto) 0.7 0.4-5.4 10 ^3/uL Monocytes # (Auto) 2.1 H 0-1.3 10 ^3/uL Eosinophils # (Auto) 0 0-0.8 10 ^3/uL Basophils # (Auto) 0 0-0.2 10 ^3/uL Nucleated Red Blood Cells 0.0 % Sodium Level 135 L 136-145 mmol/L Potassium Level 4.3 3.5-5.1 mmol/L Chloride Level 103 98-107 mmol/L Carbon Dioxide Level 23 20-31 mmol/L Anion Gap 9 5-15 Blood Urea Nitrogen 23 9-23 mg/dL Creatinine 1.33 H 0.700-1.30 mg/dL Glomerular Filtration Rate Calc 56 >90 mL/min BUN/Creatinine Ratio 17.3 10.0-20.0 Serum Glucose 111 H 74-106 mg/dL Lactic Acid Level 1.1 0.4-2.0 mmol/L Calcium Level 9.3 8.7-10.4 mg/dL Troponin I High Sensitivity 7 </=54 ng/L B-Type Natriuretic Peptide 48.78 0-100 pg/mL Current Medications Medications (Trade) Dose Ordered Sig/Nic Route Start Time Stop Time Status Last Admin Lactated Ringer's 1,850 ml @ 1,850 mls/hr ONCE ONCE IV 03/22/25 17:45 03/22/25 18:44 DC 03/22/25 18:48 Cefepime HCl 50 ml @ 12.5 mls/hr NOW STAT IV 03/22/25 17:41 03/22/25 21:40 DC 03/22/25 18:25 Time of 1ST Reevaluation: 18:15 Reevaluation 1ST: Unchanged Patient Education/Counseling: Diagnosis, Treatment, Prognosis Family Education/Counseling: No Family Present SEPSIS Sepsis Screen Date sepsis recognized/suspect: Mar 22, 2025 Time Sepsis recognized/suspect: 1628 Recent Procedure: No On Antibiotic Therapy: No Respiratory Rate >20: Yes Heart Rate >90: Yes Temp<36 C (96.8 F) or >38.3 C: No SBP <90 or MAP <65 mmHG: No New Acute Mental Status Change: No Is the patient on CPAP, BIPAP,: No Physician Orders Chest Portable (03/22/25 16:38) Electrocardigram (03/22/25 17:38) Electrocardigram (03/22/25 19:38) Blood Culture (03/22/25 17:41) Notify Md If Map <65 Or Bp<90 (03/22/25 17:41) If Map<65 Start Vasopressor (03/22/25 17:41) Sepsis Reassesment After Fluid (03/22/25 18:41) Vital Signs Date Time Temp Pulse Resp B/P (MAP) Pulse Ox O2 Delivery O2 Flow Rate FiO2 03/23/25 03:00 81 27 100/61 (74) 95 03/23/25 00:00 66 23 103/57 (72) 93 03/22/25 22:00 68 20 102/52 (69) 92 03/22/25 20:00 76 03/22/25 20:00 76 28 98/57 (71) 93 03/22/25 18:11 90 28 127/58 (81) 95 03/22/25 18:11 91 22 95 Simple Mask* 6 50 03/22/25 17:45 108 03/22/25 16:45 108 03/22/25 16:26 98.4 110 24 103/59 98.4 Laboratory Tests Test 03/22/25 18:10 Lactic Acid Level 1.1 mmol/L (0.4-2.0) White Blood Count 12.2 10^3/uL (4.4-10.8) H Departure 1 Departure Time of Disposition: 10:34 (Patient with concern for sepsis likely secondary to pneumonia. Patient has a new oxygen requirement and is critically ill. We will admit patient for further workup and expert consultation) Impression: Primary Impression: Acute respiratory failure Qualified Codes: J96.01 - Acute respiratory failure with hypoxia Additional Impressions: Shortness of breath Pneumonia Qualified Codes: J18.9 - Pneumonia, unspecified organism Suspected sepsis Disposition: ADMITTED INPATIENT Admit to: Tele Condition: Guarded Critical Care Note Critical Care Time?: Yes Critical care comment: Acute hypoxic respiratory failure Authorized and Performed by: Андрей Castillo MD Total critical care time: Approximately 134 minutes Due to a high probability of clinically significant, life threatening deterioration, the patient required my highest level of preparedness to intervene emergently and I personally spent this critical care time directly and personally managing the patient. This critical care time included obtaining a history; examining the patient; pulse oximetry; ordering and review of studies; arranging urgent treatment with development of a management plan; evaluation of patient's response to treatment; frequent reassessment; and, discussions with other providers. This critical care time was performed to assess and manage the high probability of imminent, life-threatening deterioration that could result in multi-organ failure. It was exclusive of separately billable procedures and treating other patients and teaching time. Please see my other sections and the rest of the note for further information on patient assessment and treatment. Stability Stability form required: No I personally scribed for АНДРЕЙ CASTILLO MD ([email or web address]) on 03/22/25 at 17:45. E lectronically submitted by Aristides Zamora ([email or web address]). АНДРЕЙ CASTILLO MD Mar 22, 2025 17:45
--- NOTE | 2025-03-22 18:01 | DVH ---
CHEST RADIOGRAPH Indication: sob Technique: XY CHEST PORTABLE Comparison: None FINDINGS: The cardiac silhouette is unremarkable. Interstitial airspace opacities which could represent sequela of pulmonary edema, atypical infection, chronic lung changes/disease. Bilateral pulmonary nodules that are calcified consistent with remote granulomatous disease. Right lower lobe airspace opacification /developing consolidate. The pulmona ry vasculature is prominent. Small right pleural pleural effusion. There is no pneumothorax. IMPRESSION: As above. Follow-up to resolution.
[2025-03-22 18:11] VITALS: PULSE 91; RESP 22; O2SAT 95
[2025-03-22 18:23] LABS: Hematocrit 41.2 % (41.0-53.0); Hemoglobin 14.0 g/dL (13.5-17.5); Mean Corpuscular Hemoglobin 33.2 pg (28.0-32.0); Mean Corpuscular Volume 98.0 fL (80.0-100.0); Nucleated Red Blood Cells % 0.0 %
[2025-03-22] MEDS: CEFEPIME 1GM/50ML 50 ML IV STA (18:25)
[2025-03-22 18:42] LABS: Chloride 103 mmol/L (98-107); Potassium 4.3 mmol/L (3.5-5.1)
[2025-03-22 18:43] LABS: Anion Gap 9 (5-15); Calcium 9.3 mg/dL (8.7-10.4); Carbon Dioxide 23 mmol/L (20-31)
[2025-03-22 18:48] LABS: BUN/Creatinine Ratio 17.3 (10.0-20.0); Blood Urea Nitrogen 23 mg/dL (9-23); Glucose 111 mg/dL (74-106); Sodium 135 mmol/L (136-145)
[2025-03-22] MEDS: LACTATED RINGER'S 1,850 ML IV ONE (18:48)
[2025-03-22 22:43] LABS: Urine Amorphous Crystal FEW /hpf (None Seen); Urine Protein, UAD TRACE (Negative)
[2025-03-23] VITALS (12 sets, daily range): BP systolic 101–124; BP diastolic 53–65; PULSE 70–95; RESP 15–22; TEMP 97.7–98.9; O2SAT 89–98
[2025-03-23 10:28] LABS: COVID19 ANTIGEN SOFIA FIA NEGATIVE (NEGATIVE)
[2025-03-23] MEDS: ceFAZolin 2 GM/D5W50ml 50 ML IV ONE (10:54)
--- NOTE | 2025-03-23 10:54 | DVHHP2 ---
History of Present Illness Reason for Visit: SOB History of Present Illness Jeremías Winn is a 75-year-old male with past medical history of COPD, AFib, hypertension, anxiety, depression, congenital heart disease, and aneurysm who presents to the ED with shortness of breath that started 1 week ago. Patient reports that it has been worsening. Patient also endorses that he quit smoking 3 months ago. He also states that he uses home oxygen continuously 2 L via nasal cannula. Patient also reports that he had seen his primary 2-3 years ago and was diagnosed with pulmonary nodules but they stated that there was no further workup to be done. Patient also states that he lives at home with his girlfriend. He also states that he does not use any DMEs with ambulation. Patient denies any recent trauma or injury, recent sick contacts, recent travels, recent ingestion of spoiled food, chest pain, fever, chills, lightheadedness, weakness, dizziness, abdominal pain, nausea, vomiting, or diarrhea. Patient reports that he lives up here in [place]. He also denies any family history of cancer. He also states that he has no history of TB. Cardiovascular: AFIB, HTN Pulmonary: COPD Psych: Anxiety, Depression Past Medical History Congenital heart disease AAA Past Surgical History: Other (Left shoulder surgery) Family History: Other (Dad with heart disease) Smoke: Quit ALCOHOL: none Drugs: None Lives: with Family Domestic Violence: Neg Review of Systems Respiratory: Shortness of breath Allergies: Coded Allergies: NO KNOWN ALLERGIES (Unverified , 12/02/15) Exam Vital Signs Vital Signs Date Time Temp Pulse Resp B/P (MAP) Pulse Ox O2 Delivery O2 Flow Rate FiO2 03/23/25 03:00 81 27 100/61 (74) 95 03/22/25 18:11 Simple Mask* 6 50 03/22/25 16:26 98.4 98.4 General Appearance: Alert, Oriented X3, Cooperative, No acute distress HEENT: Atraumatic, PERRLA, EOMI, Mucous membr. moist/pink Respiratory: Normal air movement Cardiovascular: Normal S1, Normal S2 Abdominal: Normal bowel sounds, Soft Extremities: No cyanosis Neuro: Normal speech, Strength at 5/5 X4 ext, Normal tone, Sensation intact Psych/Mental Status: Mental status NL, Mood NL Labs/Xrays Labs Test 03/23/25 05:29 03/22/25 22:17 03/22/25 20:57 03/22/25 18:10 Range/Units SARS-CoV-2 Antigen (Rapid) Negative NEGATIVE Urine Color Yellow Yellow Urine Clarity Clear Clear Urine pH 5.5 5.0-9.0 Urine Specific [place] 1.020 1.001-1.035 Urine Protein Trace H Negative Urine Ketones Negative Negative Urine Blood Negative Negative /uL Urine Nitrite 2+ H Negative Urine Bilirubin Negative Negative Urine Urobilinogen Normal Negative mg/dL Urine Leukocyte Esterase Negative Negative /uL Urine RBC <1 0 - 3 /hpf Urine Microscopic WBC 2 0-3 /HPF Urine Squamous Epithelial Cells Few <5 /hpf Urine Amorphous Crystals Few None Seen /hpf Urine Bacteria Few H None Seen /hpf Urine Hyaline Casts Few 0 - 2 /lpf Urine Mucus Few None Seen Urine Glucose Normal Normal mg/dL Troponin I High Sensitivity 5 </=54 ng/L White Blood Count 12.2 H 4.4-10.8 10^3/uL Red Blood Count 4.21 L 4.5-5.90 10^6/uL Hemoglobin 14.0 13.5-17.5 g/dL Hematocrit 41.2 41.0-53.0 % Mean Corpuscular Volume 98.0 80.0-100.0 fL Mean Corpuscular Hemoglobin 33.2 H 28.0-32.0 pg Mean Corpuscular Hemoglobin Concent 33.9 32.0-36.0 g/dL Red Cell Distribution Width 13.9 11.8-14.3 % Platelet Count 168 140-450 10^3/uL Mean Platelet Volume 7.6 6.9-10.8 fL Neutrophils (%) (Auto) 76.5 37.0-80.0 % Lymphocytes (%) (Auto) 6.1 L 10.0-50.0 % Monocytes (%) (Auto) 17.0 H 0.0-12.0 % Eosinophils (%) (Auto) 0.1 0.0-7.0 % Basophils (%) (Auto) 0.3 0.0-2.0 % Neutrophils # (Auto) 9.4 H 1.6-8.6 10 ^3/uL Lymphocytes # (Auto) 0.7 0.4-5.4 10 ^3/uL Monocytes # (Auto) 2.1 H 0-1.3 10 ^3/uL Eosinophils # (Auto) 0 0-0.8 10 ^3/uL Basophils # (Auto) 0 0-0.2 10 ^3/uL Nucleated Red Blood Cells 0.0 % Sodium Level 135 L 136-145 mmol/L Potassium Level 4.3 3.5-5.1 mmol/L Chloride Level 103 98-107 mmol/L Carbon Dioxide Level 23 20-31 mmol/L Anion Gap 9 5-15 Blood Urea Nitrogen 23 9-23 mg/dL Creatinine 1.33 H 0.700-1.30 mg/dL Glomerular Filtration Rate Calc 56 >90 mL/min BUN/Creatinine Ratio 17.3 10.0-20.0 Serum Glucose 111 H 74-106 mg/dL Lactic Acid Level 1.1 0.4-2.0 mmol/L Calcium Level 9.3 8.7-10.4 mg/dL B-Type Natriuretic Peptide 48.78 0-100 pg/mL CHEST RADIOGRAPH Indication: sob Technique: XY CHEST PORTABLE Comparison: None FINDINGS: The cardiac silhouette is unremarkable. Interstitial airspace opacities which could represent sequela of pulmonary edema, atypical infection, chronic lung changes/disease. Bilateral pulmonary nodules that are calcified consistent with remote granulomatous disease. Right lower lobe airspace opacification /developing consolidate. The pulmonary vasculature is prominent. Small right pleural pleural effusion. There is no pneumothorax. IMPRESSION: As above. Follow-up to resolution. Indication: pulm nodules Technique: CT axial images of the chest are obtained without contrast. Coronal and sagittal reformats were obtained. Radiation Dose Information: CTDI volume is 6 mGy. Dose-length product is 234 mGy*cm Comparison: Chest radiograph from 03/22/2025, 10/19/2023 FINDINGS: The trachea is patent. No pneumothorax. Pulmonary emphysematous changes.m numerous bilateral pulmonary calcified nodules consistent with remote granulomatous disease. Developing right lower lobe pulmonary airspace consolidation, tree-in-bud nodularity. Small right and tiny left pleural effusions. Right upper lobe soft nodule measuring 10 mm. Right middle lobe soft tissue nodu le measuring 6 mm. Heart normal in size. Coronary artery calcification disease. Pretracheal lymph node measuring 9 mm. Subcarinal lymph node measuring 10 mm. Left paratracheal lymph node measuring 12 mm. Right paratracheal lymph node measuring 10 mm. No supraclavicular or axillary lymphadenopathy Right renal vascular calcifications. Moderate volume stool in the imaged portions of the large bowel. Abdominal aortic endograft, incompletely visualized. [id number] thoracic degenerative disc disease. T5 vertebral body chronic compression deformity with 50% loss height. IMPRESSION: Pulmonary emphysematous changes. Extensive pulmonary calcified nodule consistent with remote granulomatous disease. Pulmonary soft tissue nodules up to 10 mm recommend follow-up per fleischner society criteria. Developing right lower lobe pulmonary airspace consolidation, tree-in-bud nodularity. Follow-up to resolution Mediastinal lymphadenopathy as described. Other findings as described. SEPSIS Sepsis Screen Date sepsis recognized/suspect: Mar 22, 2025 Time Sepsis recognized/suspect: 1813 Recent Procedure: No On Antibiotic Therapy: No Respiratory Rate >20: No Heart Rate >90: No Temp<36 C (96.8 F) or >38.3 C: No SBP <90 or MAP <65 mmHG: No New Acute Mental Status Change: No Is the patient on CPAP, BIPAP,: No Vital Signs Date Time Temp Pulse Resp B/P (MAP) Pulse Ox O2 Delivery O2 Flow Rate FiO2 03/23/ 03:00 81 27 100/61 (74) 95 Assessment/Plan Assessment/Plan Assessment Leukocytosis possibly PNA HUGO likely prerenal Right-sided pleural effusion Acute cystitis Acute on chronic COPD exacerbation rule out PE Interstitial airspace opacities which could represent sequela of pulmonary edema, atypical infection, chronic lung changes/disease. Bilateral pulmonary nodules that are calcified consistent with remote granulomatous disease. Extensive pulmonary calcified nodule consistent with remote granulomatous disease. Pulmonary soft tissue nodules up to 10 mm Small right pleural pleural effusion Tobacco use History of COPD History of AFib History of hypertension History of anxiety History of depression History of congenital heart disease History of AAA History of left shoulder surgery Plan Admit to [facility] IV antibiotics-ceftriaxone Antiemetics Pain management LR given in ED COVID negative Lactic level Blood cultures EKG Troponin noted negative x3 Chest x-ray UA BNP D-dimer ct chest Coccidial Aspergillus Diet RN to reconcile home medications DVT prophylaxis-not indicated ambulating PUD prophylaxis-not indicated history of GERD or GI bleed Discussed plan of care with patient and nurse Pulmonary consult Counseled patient on cessation of tobacco use [id number] Behavior change smoking greater than 10 minutes about use of other options also gave option of nicotine patch 31835 Preventive counseling healthy eating habits, physical activity, and regular checkups Plan discussed with: Patient Date of Service: Mar 23, 2025 Billing Provider: JEREMI MACIAS Common Visit Codes: 34298-HDSSDXQ INP/OBS CARE (HIGH) Secondary Visit Codes: 51800-[id number] COUNSELING IND, 20200-HCFIY CHNG SMOKING >10MIN JEREMI MACIAS Mar 23, 2025 10:54
[2025-03-23] MEDS ORDERED: ONDANSETRON HCL 4 MG/2 ML VIAL IV PRN (11:00)
--- NOTE | 2025-03-23 11:31 | DVH ---
Indication: pulm nodules Technique: CT axial images of the chest are obtained without contrast. Coronal and sagittal reformats were obtained. Radiation Dose Information: CTDI volume is 6 mGy. Dose-length product is 234 mGy*cm Comparison: Chest radiograph from 03/22/2025, 10/19/2023 FINDINGS: The trachea is patent. No pneumothorax. Pulmonary emphysematous changes.m numerous bilateral pulmonar y calcified nodules consistent with remote granulomatous disease. Developing right lower lobe pulmonary airspace consolidation, tree-in-bud nodularity. Small right an d tiny left pleural effusions. Right upper lobe soft nodule measuring 10 mm. Right middle lobe soft tissue nodule measuring 6 mm. Heart normal in size. Coronary artery calcification disease. Pretracheal lymph node measuring 9 mm. Subcarinal lymph node measuring 10 mm. Left paratracheal lymph node measuring 12 mm. Right paratrache al lymph node measuring 10 mm. No supraclavicular or axillary lymphadenopathy Right renal vascular calcifications. Moderate volume stool in the imaged portions of the large bowel. Abdominal aortic endograft, incompletely visualized. [id number] thoracic degenerative disc disease. T5 vertebral body chronic compression deformity with 50% loss height. IMPRESSION: Pulmonary emphysematous changes. Extensive pulmonary calcified nodule consistent with remote granulomatous disease. Pulmonary soft tissue nodules up to 10 mm recommend follow-up per fleischner society criteria. Developing right lower lobe pulmonary airspace consolidation, tree-in-bud nodularity. Follow-up to r esolution Mediastinal lymphadenopathy as described. Other findings as described.
[2025-03-23] MEDS: ALBUTEROL SULF 2.5 MG/0.5ML(0.5%) NEB SOLN NEB SCH (15:49)
[2025-03-23] MEDS: IPRATROPIUM BROM 0.5 MG/2.5ML INH SOL NEB SCH (15:49)
--- NOTE | 2025-03-23 20:00 | DVHINCON2 ---
Date Seen: Mar 23, 2025 Referring Physician DAVID Burnett Reason for Consultation Acute hypoxic respiratory failure, COPD exacerbation and pleural effusion. History of Present Illness A 75-year-old man with past medical history of COPD, AFib, hypertension, congenital heart disease, AAA, anxiety and depression, who presented to the ED on 03/22/25 with c/o shortness of breath that started 1 week ago. Patient reported SOB has been worsening; he uses home oxygen continuously 2 L via nasal cannula. Patient also reports that he had seen his primary 2-3 years ago and was diagnosed with pulmonary nodules, but they stated that there was no further workup to be done. Patient denies any recent trauma or injury, recent sick contacts, chest pain, fever, chills, N/V/D or other acute complaints. Patient was admitted for further care. Pulmonary consultation is requested for evaluation and management of acute hypoxic respiratory failure, COPD exacerbation and pleural effusion. Review of Systems: 14-point review of systems negative unless otherwise noted above. Past Medical History: COPD, AFib, hypertension, congenital heart disease, AAA, anxiety and depression Past Surgical History: Left shoulder surgery Medications: Reviewed. Allergies: No known drug allergies. Family History: Dad with heart disease. Social History: Smoker. No alcohol or illicit drug use. Family History: Cardiovascular disease G8 FATHER FHx: congestive heart failure Hypertension Internal cardiac defibrillator Allergies: Coded Allergies: NO KNOWN ALLERGIES (Unverified , 12/02/15) Home Meds Unable to Obtain Active Prescriptions or Reported Meds Current Medications Current Medications Medications (Trade) Dose Ordered Sig/Nic Route PRN Reason Start Time Stop Time Status Last Admin Ondansetron HCl (Zofran) 4 mg Q4HP PRN IV NAUSEA / VOMITING 03/23/25 11:00 Acetaminophen (Tylenol Tablet) 650 mg Q6HP PRN PO PAIN SCALE 1-3 OR TEMP>100.4 03/23/25 11:00 Ceftriaxone Sodium 50 ml @ 100 mls/hr DAILY@09 IV 03/23/25 11:00 03/23/25 12:34 Albuterol (Ventolin Medneb) 2.5 mg Q4HWA [facility] 03/23/25 14:00 03/23/25 19:29 Ipratropium [place] (Atrovent Medneb) 0.5 mg Q4HWA [facility] 03/23/25 14:00 03/23/25 19:29 Vital Signs Vital Signs Date Time Temp Pulse Resp B/P (MAP) Pulse Ox O2 Delivery O2 Flow Rate FiO2 03/23/25 19:35 70 18 98 03/23/25 19:29 Nasal Cannula 4.0 03/23/25 19:29 36 03/23/25 16:49 98.4 101/53 (69) 98.4 Physical Exam Gen.: Patient lying in bed in no apparent distress. On supplemental oxygen. Head: Normocephalic, atraumatic. Eyes: EOMI/PERRLA. Ears: Normal hearing. Normal anatomy. Neck/trachea: Trachea midline, supple. Nose: Normal external anatomy. Mouth: Moist mucous membranes. Chest: Decreased air entry bilaterally. No wheezing or rhonchi. Cardiovascular: Positive S1, positive S2. Regular rate and rhythm. Abdomen: Positive bowel sounds in all 4 quadrants. Soft, non-tender, non- distended. : Deferred. Rectal: Deferred. Skin: Warm, dry. Intact. Extremities: 2+ radial pulses bilaterally. No lower extremity edema. Neuro: Awake, alert, oriented x3. No gross motor or sensory deficits. Cranial nerves II through XII intact. Gait not assessed. Labs/Diagnostic Data Labs Test 03/23/25 11:15 03/23/25 05:29 03/22/25 22:17 03/22/25 20:57 Range/Units D-Dimer, Quantitative 1.49 H 0.0-0.49 mg/L FEU SARS-CoV-2 Antigen (Rapid) Negative NEGATIVE Urine Color Yellow Yellow Urine Clarity Clear Clear Urine pH 5.5 5.0-9.0 Urine Specific [place] 1.020 1.001-1.035 Urine Protein Trace H Negative Urine Ketones Negative Negative Urine Blood Negative Negative /uL Urine Nitrite 2+ H Negative Urine Bilirubin Negative Negative Urine Urobilinogen Normal Negative mg/dL Urine Leukocyte Esterase Negative Negative /uL Urine RBC <1 0 - 3 /hpf Urine Microscopic WBC 2 0-3 /HPF Urine Squamous Epithelial Cells Few <5 /hpf Urine Amorphous Crystals Few None Seen /hpf Urine Bacteria Few H None Seen /hpf Urine Hyaline Casts Few 0 - 2 /lpf Urine Mucus Few None Seen Urine Glucose Normal Normal mg/dL Troponin I High Sensitivity 5 </=54 ng/L Test 03/22/25 18:10 Range/Units White Blood Count 12.2 H 4.4-10.8 10^3/uL Red Blood Count 4.21 L 4.5-5.90 10^6/uL Hemoglobin 14.0 13.5-17.5 g/dL Hematocrit 41.2 41.0-53.0 % Mean Corpuscular Volume 98.0 80.0-100.0 fL Mean Corpuscular Hemoglobin 33.2 H 28.0-32.0 pg Mean Corpuscular Hemoglobin Concent 33.9 32.0-36.0 g/dL Red Cell Distribution Width 13.9 11.8-14.3 % Platelet Count 168 140-450 10^3/uL Mean Platelet Volume 7.6 6.9-10.8 fL Neutrophils (%) (Auto) 76.5 37.0-80.0 % Lymphocytes (%) (Auto) 6.1 L 10.0-50.0 % Monocytes (%) (Auto) 17.0 H 0.0-12.0 % Eosinophils (%) (Auto) 0.1 0.0-7.0 % Basophils (%) (Auto) 0.3 0.0-2.0 % Neutrophils # (Auto) 9.4 H 1.6-8.6 10 ^3/uL Lymphocytes # (Auto) 0.7 0.4-5.4 10 ^3/uL Monocytes # (Auto) 2.1 H 0-1.3 10 ^3/uL Eosinophils # (Auto) 0 0-0.8 10 ^3/uL Basophils # (Auto) 0 0-0.2 10 ^3/uL Nucleated Red Blood Cells 0.0 % Sodium Level 135 L 136-145 mmol/L Potassium Level 4.3 3.5-5.1 mmol/L Chloride Level 103 98-107 mmol/L Carbon Dioxide Level 23 20-31 mmol/L Anion Gap 9 5-15 Blood Urea Nitrogen 23 9-23 mg/dL Creatinine 1.33 H 0.700-1.30 mg/dL Glomerular Filtration Rate Calc 56 >90 mL/min BUN/Creatinine Ratio 17.3 10.0-20.0 Serum Glucose 111 H 74-106 mg/dL Lactic Acid Level 1.1 0.4-2.0 mmol/L Calcium Level 9.3 8.7-10.4 mg/dL B-Type Natriuretic Peptide 48.78 0-100 pg/mL Microbiology Date/Time Source Procedure Growth Status 03/22/25 18:10 Blood Blood Culture - Preliminary NO GROWTH AFTER 24 HOURS OF INCUBATION. 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 IV antibiotics F/u cultures. IS for atelectasis Will do limited chest US in AM to assess if pleural effusion amenable for thoracentesis. Smoking cessation discussed greater than 10 minutes. Deferred NRT. Antiemetics DVT prophylaxis. Prognosis: Poor given patient's multiple co-morbidities. Rest of plan per hospitalist and other consultants. Thank you, DAVID Burnett, for allowing me to participate in this patient's care. Further recommendations will depend on the patient's clinical course. Please do not hesitate to contact me if you have any questions or concerns. This medical document was created using an electronic medical record system with [employer] dictation system. Although these documentations are being carefully reviewed, there may still be some phonetic and typographical changes. The errors are purely typographical, due to imperfection on the software program, and do not reflect any compromise in the patient's medical care. Plan discussed with: Patient, Other (RN Gavin) Date of Service: Mar 23, 2025 Billing Provider: SIGIFREDO PADRON MD Common Visit Codes: [id number] INP/OBS CARE (HIGH) Secondary Visit Codes: [id number] CHNG SMOKING >10MIN SIGIFREDO PADRON MD Mar 23, 2025 20:00
[2025-03-24] VITALS (17 sets, daily range): BP systolic 94–107; BP diastolic 53–61; PULSE 71–104; RESP 16–18; TEMP 96.1–98.9; O2SAT 87–98
[2025-03-24 05:34] LABS: Hematocrit 38.1 % (41.0-53.0); Hemoglobin 13.0 g/dL (13.5-17.5); Mean Corpuscular Hemoglobin 33.5 pg (28.0-32.0); Mean Corpuscular Volume 98.2 fL (80.0-100.0); Nucleated Red Blood Cells % 0.0 %
[2025-03-24 05:47] LABS: Alanine Aminotransferase 19 U/L (7-40); Albumin 3.6 g/dL (3.2-4.8); Alkaline Phosphatase 69 U/L (46-116); Anion Gap 10 (5-15); BUN/Creatinine Ratio 13.5 (10.0-20.0); Blood Urea Nitrogen 15 mg/dL (9-23); Calcium 9.2 mg/dL (8.7-10.4); Carbon Dioxide 27 mmol/L (20-31); Chloride 103 mmol/L (98-107); Potassium 4.2 mmol/L (3.5-5.1); Sodium 140 mmol/L (136-145); Total Protein 6.8 g/dL (5.7-8.2)
[2025-03-24 05:48] LABS: Bilirubin, Total 0.8 mg/dL (0.2-1.0); Glucose 114 mg/dL (74-106)
--- NOTE | 2025-03-24 12:54 | DVHPN2 ---
Subjective The patient is seen and examined at bedside. The patient is still have shortness a breath. Reviewed: Care Plan, H&P, Labs, Medications, Previous Orders, Radiology Changes from previous H/P or p: No Changes Respiratory: Shortness of breath Objective Vitals Vital Signs Date Time Temp Pulse Resp B/P (MAP) Pulse Ox O2 Delivery O2 Flow Rate FiO2 03/24/25 10:31 72 18 95 03/24/25 10:25 Nasal Cannula* 4 36 03/24/25 08:51 97.6 101/57 (72) 97.6 Intake/Output Intake and Output 03/24/25 07:00 Intake Total 420 ml Balance 420 ml Intake Oral 370 ml IV Total 50 ml # Voids 1 General Appearance: Alert, Cooperative, No acute distress HEENT: Atraumatic, PERRLA, EOMI, Mucous membr. moist/pink Neck: Supple Lungs: Clear to auscultation, Normal air movement Cardiovascular: Regular rate, Normal S1, Normal S2, No murmurs, Gallops, Rubs Abdomen: Normal bowel sounds, Soft, No tenderness Neuro: Cranial nerves 3-12 NL Psych/Mental Status: Mental status NL Medications Current Medications Medications Dose Ordered Sig/Nic Route Start Time Stop Time Status Last Admin Dose Admin Ondansetron HCl 4 mg Q4HP PRN IV 03/23/25 11:00 Acetaminophen 650 mg Q6HP PRN PO 03/23/25 11:00 Ceftriaxone Sodium 50 ml @ 100 mls/hr DAILY@09 IV 03/23/25 11:00 03/24/25 08:57 100 MLS/HR Albuterol 2.5 mg Q4HWA [facility]B 03/23/25 14:00 03/24/25 10:22 2.5 MG Ipratropium [place] 0.5 mg Q4HWA [facility] 03/23/25 14:00 03/24/25 10:22 0.5 MG Laboratory Results Laboratory Tests 03/24/25 02:51 Chemistry Test 03/24/25 02:51 Albumin 3.6 g/dL (3.2-4.8) Calcium Level 9.2 mg/dL (8.7-10.4) Total Protein 6.8 g/dL (5.7-8.2) LFT Test 03/24/25 02:51 Alanine Aminotransferase (ALT) 19 U/L (7-40) Alkaline Phosphatase 69 U/L (46-116) Aspartate Amino Transferase (AST) 25 U/L (13-40) Total Bilirubin 0.8 mg/dL (0.2-1.0) Urinalysis Test 03/22/25 22:17 Urine Color Yellow (Yellow) Urine Clarity Clear (Clear) Urine pH 5.5 (5.0-9.0) Urine Specific [place] 1.020 (1.001-1.035) Urine Protein Trace (Negative) H Urine Ketones Negative (Negative) Urine Blood Negative /uL (Negative) Urine Nitrite 2+ (Negative) H Urine Bilirubin Negative (Negative) Urine Urobilinogen Normal mg/dL (Negative) Urine Leukocyte Esterase Negative /uL (Negative) Urine RBC <1 /hpf (0 - 3) Urine Microscopic WBC 2 /HPF (0-3) Urine Squamous Epithelial Cells Few /hpf (<5) Urine Amorphous Crystals Few /hpf (None Seen) Urine Bacteria Few /hpf (None Seen) H Urine Hyaline Casts Few /lpf (0 - 2) Urine Mucus Few (None Seen) Urine Glucose Normal mg/dL (Normal) Microbiology Microbiology Date/Time Source Procedure Growth Status 03/22/25 18:10 Blood Blood Culture - Preliminary NO GROWTH AFTER 24 HOURS OF INCUBATION. Resulted Labs and/or images reviewed: Labs reviewed by me, Image(s) reviewed by me Assessment/Plan Assessment/Plan Leukocytosis possibly PNA HUGO likely prerenal Right-sided pleural effusion Acute cystitis Acute on chronic COPD exacerbation rule out PE Interstitial airspace opacities which could represent sequela of pulmonary edema, atypical infection, chronic lung changes/disease. Bilateral pulmonary nodules that are calcified consistent with remote granulomatous disease. Extensive pulmonary calcified nodule consistent with remote granulomatous disease. Pulmonary soft tissue nodules up to 10 mm Small right pleural pleural effusion Tobacco use History of COPD History of AFib History of hypertension History of anxiety History of depression History of congenital heart disease History of AAA History of left shoulder surgery Plan Continuing current management. CT chest showed no PE. This had extensive emphysema on imaging studying. Continuing IV antibiotic Rocephin and Zithromax. Continuing with nebulizer. Pulmonology consulted for nodule of lung. We will follow up. Continuing with sliding scale insulin. Continuing with statin. This medical document was created using an electronic medical record system with [employer] computerized dictation system. Although this document has been carefully reviewed, there may still be some phonetic and typographical errors. These areas are purely typographical due to imperfections of the software programs, and do not reflect any compromise in the patient's medical care. Plan discussed with: Patient Date of Service: Mar 24, 2025 Billing Provider: CRISTIAN PERERA MD Common Visit Codes: [id number] INP/OBS CARE(HIGH) CRISTIAN PERERA MD Mar 24, 2025 12:54
[2025-03-25] VITALS (19 sets, daily range): BP systolic 93–125; BP diastolic 55–77; PULSE 74–111; RESP 14–19; TEMP 96.1–98.7; O2SAT 87–95
[2025-03-25 06:10] LABS: Hematocrit 36.5 % (41.0-53.0); Hemoglobin 12.4 g/dL (13.5-17.5); Mean Corpuscular Hemoglobin 33.2 pg (28.0-32.0); Mean Corpuscular Volume 98.0 fL (80.0-100.0); Nucleated Red Blood Cells % 0.0 %
[2025-03-25 06:24] LABS: Anion Gap 11 (5-15); Carbon Dioxide 25 mmol/L (20-31); Chloride 101 mmol/L (98-107); Potassium 3.6 mmol/L (3.5-5.1); Sodium 137 mmol/L (136-145)
[2025-03-25 06:26] LABS: Calcium 9.1 mg/dL (8.7-10.4)
[2025-03-25 06:30] LABS: BUN/Creatinine Ratio 13.4 (10.0-20.0); Blood Urea Nitrogen 13 mg/dL (9-23)
[2025-03-25 06:35] LABS: Glucose 115 mg/dL (74-106)
--- NOTE | 2025-03-25 13:24 | DVHPN2 ---
Subjective The patient is seen and examined at bedside. The patient is still have shortness a breath. Reviewed: Care Plan, H&P, Labs, Medications, Previous Orders, Radiology Changes from previous H/P or p: No Changes Respiratory: Shortness of breath Objective Vitals Vital Signs Date Time Temp Pulse Resp B/P (MAP) Pulse Ox O2 Delivery O2 Flow Rate FiO2 03/25/25 12:58 98.1 88 17 113/77 (89) 88 98.1 03/25/25 10:06 Nasal Cannula* 4 36 Intake/Output Intake and Output 03/25/25 07:00 Intake Total 746 ml Output Total 950 ml Balance -204 ml Intake Oral 696 ml IV Total 50 ml Output Urine Total 950 ml General Appearance: Alert, Cooperative, No acute distress HEENT: Atraumatic, PERRLA, EOMI, Mucous membr. moist/pink Neck: Supple Lungs: Clear to auscultation, Normal air movement Cardiovascular: Regular rate, Normal S1, Normal S2, No murmurs, Gallops, Rubs Abdomen: Normal bowel sounds, Soft, No tenderness Neuro: Cranial nerves 3-12 NL Psych/Mental Status: Mental status NL Medications Current Medications Medications Dose Ordered Sig/Nic Route Start Time Stop Time Status Last Admin Dose Admin Ondansetron HCl 4 mg Q4HP PRN IV 03/23/25 11:00 Acetaminophen 650 mg Q6HP PRN PO 03/23/25 11:00 Ceftriaxone Sodium 50 ml @ 100 mls/hr DAILY@09 IV 03/23/25 11:00 03/25/25 09:25 100 MLS/HR Albuterol 2.5 mg Q4HWA [facility] 03/23/25 14:00 03/25/25 10:06 2.5 MG Ipratropium [place] 0.5 mg Q4HWA NEB 03/23/25 14:00 03/25/25 10:06 0.5 MG Laboratory Results Laboratory Tests 03/25/25 04:35 Chemistry Test 03/25/25 04:35 Calcium Level 9.1 mg/dL (8.7-10.4) Urinalysis Test 03/22/25 22:17 Urine Color Yellow (Yellow) Urine Clarity Clear (Clear) Urine pH 5.5 (5.0-9.0) Urine Specific [place] 1.020 (1.001-1.035) Urine Protein Trace (Negative) H Urine Ketones Negative (Negative) Urine Blood Negative /uL (Negative) Urine Nitrite 2+ (Negative) H Urine Bilirubin Negative (Negative) Urine Urobilinogen Normal mg/dL (Negative) Urine Leukocyte Esterase Negative /uL (Negative) Urine RBC <1 /hpf (0 - 3) Urine Microscopic WBC 2 /HPF (0-3) Urine Squamous Epithelial Cells Few /hpf (<5) Urine Amorphous Crystals Few /hpf (None Seen) Urine Bacteria Few /hpf (None Seen) H Urine Hyaline Casts Few /lpf (0 - 2) Urine Mucus Few (None Seen) Urine Glucose Normal mg/dL (Normal) Microbiology Microbiology Date/Time Source Procedure Growth Status 03/22/25 18:10 Blood Blood Culture - Preliminary NO GROWTH AFTER 48 HOURS OF INCUBATION. Resulted Labs and/or images reviewed: Labs reviewed by me Assessment/Plan Assessment/Plan Leukocytosis possibly PNA HUGO likely prerenal Right-sided pleural effusion Acute cystitis Acute on chronic COPD exacerbation rule out PE Interstitial airspace opacities which could represent sequela of pulmonary edema, atypical infection, chronic lung changes/disease. Bilateral pulmonary nodules that are calcified consistent with remote granulomatous disease. Extensive pulmonary calcified nodule consistent with remote granulomatous disease. Pulmonary soft tissue nodules up to 10 mm Small right pleural pleural effusion Tobacco use History of COPD History of AFib History of hypertension History of anxiety History of depression History of congenital heart disease History of AAA History of left shoulder surgery Plan Continuing current management. CT chest showed no PE. This had extensive emphysema on imaging studying. Continuing IV antibiotic Rocephin and Zithromax. Continuing with nebulizer. Pulmonology consulted for nodule of lung. We will follow up. Continuing with sliding scale insulin. Continuing with statin. This medical document was created using an electronic medical record system with [employer] computerized dictation system. Although this document has been carefully reviewed, there may still be some phonetic and typographical errors. These areas are purely typographical due to imperfections of the software programs, and do not reflect any compromise in the patient's medical care. Plan discussed with: Patient My Orders Orders - CRISTIAN PERERA MD Procedure Category Date Status Time Complete Blood Count LAB 03/26/25 Verified 05:00 Complete Blood Count LAB 03/27/25 Verified 05:00 Complete Blood Count LAB 03/28/25 Verified 05:00 Complete Blood Count LAB 03/29/25 Verified 05:00 Basic Metabolic Panel LAB 03/26/25 Verified 05:00 Basic Metabolic Panel LAB 03/27/25 Verified 05:00 Basic Metabolic Panel LAB 03/28/25 Verified 05:00 Basic Metabolic Panel LAB 03/29/25 Verified 05:00 Date of Service: Mar 25, 2025 Billing Provider: CRISTIAN PERERA MD Common Visit Codes: [id number] INP/OBS CARE(HIGH) CRISTIAN PERERA MD Mar 25, 2025 13:24
[2025-03-26] VITALS (19 sets, daily range): BP systolic 97–112; BP diastolic 58–75; PULSE 80–97; RESP 14–18; TEMP 97.5–99.5; O2SAT 88–100
[2025-03-26 06:30] LABS: Nucleated Red Blood Cells % 0.0 %
[2025-03-26 06:36] LABS: Chloride 100 mmol/L (98-107); Potassium 4.1 mmol/L (3.5-5.1)
[2025-03-26 06:37] LABS: Anion Gap 9 (5-15); Calcium 9.0 mg/dL (8.7-10.4); Carbon Dioxide 26 mmol/L (20-31)
[2025-03-26 06:39] LABS: Hematocrit 35.4 % (41.0-53.0); Hemoglobin 12.5 g/dL (13.5-17.5); Mean Corpuscular Hemoglobin 34.3 pg (28.0-32.0); Mean Corpuscular Volume 97.2 fL (80.0-100.0)
[2025-03-26 06:43] LABS: BUN/Creatinine Ratio 12.9 (10.0-20.0); Blood Urea Nitrogen 12 mg/dL (9-23)
[2025-03-26 07:02] LABS: Glucose 111 mg/dL (74-106); Sodium 135 mmol/L (136-145)
--- NOTE | 2025-03-26 14:45 | DVHPN2 ---
Subjective The patient is seen and examined at bedside. The patient is still have shortness a breath. Reviewed: Care Plan, H&P, Labs, Medications, Previous Orders, Radiology Changes from previous H/P or p: No Changes Respiratory: Shortness of breath Objective Vitals Vital Signs Date Time Temp Pulse Resp B/P (MAP) Pulse Ox O2 Delivery O2 Flow Rate FiO2 03/26/25 14:28 80 16 111/62 96 5.0 03/26/25 12:50 98.3 98.3 03/26/25 06:09 Nasal Cannula 03/26/25 06:09 40 Intake/Output Intake and Output 03/26/25 07:00 Intake Total 370 ml Output Total 970 ml Balance -600 ml Intake Oral 370 ml Output Urine Total 970 ml General Appearance: Alert, Cooperative, No acute distress HEENT: Atraumatic, PERRLA, EOMI, Mucous membr. moist/pink Neck: Supple Lungs: Clear to auscultation, Normal air movement Cardiovascular: Regular rate, Normal S1, Normal S2, No murmurs, Gallops, Rubs Abdomen: Normal bowel sounds, Soft, No tenderness Neuro: Cranial nerves 3-12 NL Psych/Mental Status: Mental status NL Medications Current Medications Medications Dose Ordered Sig/Nic Route Start Time Stop Time Status Last Admin Dose Admin Ondansetron HCl 4 mg Q4HP PRN IV 03/23/25 11:00 Acetaminophen 650 mg Q6HP PRN PO 03/23/25 11:00 Ceftriaxone Sodium 50 ml @ 100 mls/hr DAILY@09 IV 03/23/25 11:00 03/26/25 09:13 100 MLS/HR Albuterol 2.5 mg Q4HWA NEB 03/23/25 14:00 03/26/25 13:59 2.5 MG Ipratropium [place] 0.5 mg Q4HWA NEB 03/23/25 14:00 03/26/25 13:58 0.5 MG Laboratory Results Laboratory Tests 03/26/25 05:36 Chemistry Test 03/26/25 05:36 Calcium Level 9.0 mg/dL (8.7-10.4) Urinalysis Test 03/22/25 22:17 Urine Color Yellow (Yellow) Urine Clarity Clear (Clear) Urine pH 5.5 (5.0-9.0) Urine Specific [place] 1.020 (1.001-1.035) Urine Protein Trace (Negative) H Urine Ketones Negative (Negative) Urine Blood Negative /uL (Negative) Urine Nitrite 2+ (Negative) H Urine Bilirubin Negative (Negative) Urine Urobilinogen Normal mg/dL (Negative) Urine Leukocyte Esterase Negative /uL (Negative) Urine RBC <1 /hpf (0 - 3) Urine Microscopic WBC 2 /HPF (0-3) Urine Squamous Epithelial Cells Few /hpf (<5) Urine Amorphous Crystals Few /hpf (None Seen) Urine Bacteria Few /hpf (None Seen) H Urine Hyaline Casts Few /lpf (0 - 2) Urine Mucus Few (None Seen) Urine Glucose Normal mg/dL (Normal) Microbiology Microbiology Date/Time Source Procedure Growth Status 03/22/25 18:10 Blood Blood Culture - Preliminary NO GROWTH AFTER 72 HOURS OF INCUBATION. Resulted Assessment/Plan Assessment/Plan Leukocytosis possibly PNA HUGO likely prerenal Right-sided pleural effusion Acute cystitis Acute on chronic COPD exacerbation rule out PE Interstitial airspace opacities which could represent sequela of pulmonary edema, atypical infection, chronic lung changes/disease. Bilateral pulmonary nodules that are calcified consistent with remote granulomatous disease. Extensive pulmonary calcified nodule consistent with remote granulomatous disease. Pulmonary soft tissue nodules up to 10 mm Small right pleural pleural effusion Tobacco use History of COPD History of AFib History of hypertension History of anxiety History of depression History of congenital heart disease History of AAA History of left shoulder surgery Plan Continuing current management. CT chest showed no PE. This had extensive emphysema on imaging studying. Continuing IV antibiotic Rocephin and Zithromax. Continuing with nebulizer. Pulmonology consulted for nodule of lung. We will follow up. Continuing with sliding scale insulin. Continuing with statin. This medical document was created using an electronic medical record system with [employer] computerized dictation system. Although this document has been carefully reviewed, there may still be some phonetic and typographical errors. These areas are purely typographical due to imperfections of the software programs, and do not reflect any compromise in the patient's medical care. Plan discussed with: Patient Date of Service: Mar 26, 2025 Billing Provider: CRISTIAN PERERA MD Common Visit Codes: [id number] INP/OBS CARE(HIGH) CRISTIAN PERERA MD Mar 26, 2025 14:45
--- NOTE | 2025-03-26 18:30 | DVHPN2 ---
Subjective DOS: 03/24/2025 Patient seen and examined at bedside. Remains on supplemental oxygen Overnight events reviewed. Reviewed: Care Plan, H&P, Labs, Medications, Previous Orders, Radiology Changes from previous H/P or p: No Changes Respiratory: Shortness of breath Objective Vitals Vital Signs Date Time Temp Pulse Resp B/P (MAP) Pulse Ox O2 Delivery O2 Flow Rate FiO2 03/26/25 14:28 80 16 111/62 96 5.0 03/26/25 12:57 Nasal Cannula* 40 03/26/25 12:50 98.3 98.3 Intake/Output Intake and Output 03/26/25 07:00 Intake Total 370 ml Output Total 970 ml Balance -600 ml Intake Oral 370 ml Output Urine Total 970 ml General Appearance: Alert, Cooperative, No acute distress HEENT: Atraumatic, PERRLA, EOMI, Mucous membr. moist/pink Neck: Supple Lungs: Clear to auscultation, Normal air movement Cardiovascular: Regular rate, Normal S1, Normal S2, No murmurs, Gallops, Rubs Abdomen: Normal bowel sounds, Soft, No tenderness Neuro: Cranial nerves 3-12 NL Psych/Mental Status: Mental status NL Medications Current Medications Medications Dose Ordered Sig/Nic Route Start Time Stop Time Status Last Admin Dose Admin Ondansetron HCl 4 mg Q4HP PRN IV 03/23/25 11:00 Acetaminophen 650 mg Q6HP PRN PO 03/23/25 11:00 Ceftriaxone Sodium 50 ml @ 100 mls/hr DAILY@09 IV 03/23/25 11:00 03/26/25 09:13 100 MLS/HR Albuterol 2.5 mg Q4HWA NEB 03/23/25 14:00 03/26/25 13:59 2.5 MG Ipratropium [place] 0.5 mg Q4HWA NEB 03/23/25 14:00 03/26/25 13:58 0.5 MG Laboratory Results Laboratory Tests 03/26/25 05:36 Chemistry Test 03/26/25 05:36 Calcium Level 9.0 mg/dL (8.7-10.4) Urinalysis Test 03/22/25 22:17 Urine Color Yellow (Yellow) Urine Clarity Clear (Clear) Urine pH 5.5 (5.0-9.0) Urine Specific [place] 1.020 (1.001-1.035) Urine Protein Trace (Negative) H Urine Ketones Negative (Negative) Urine Blood Negative /uL (Negative) Urine Nitrite 2+ (Negative) H Urine Bilirubin Negative (Negative) Urine Urobilinogen Normal mg/dL (Negative) Urine Leukocyte Esterase Negative /uL (Negative) Urine RBC <1 /hpf (0 - 3) Urine Microscopic WBC 2 /HPF (0-3) Urine Squamous Epithelial Cells Few /hpf (<5) Urine Amorphous Crystals Few /hpf (None Seen) Urine Bacteria Few /hpf (None Seen) H Urine Hyaline Casts Few /lpf (0 - 2) Urine Mucus Few (None Seen) Urine Glucose Normal mg/dL (Normal) Microbiology Microbiology Date/Time Source Procedure Growth Status 03/22/25 18:10 Blood Blood Culture - Preliminary NO GROWTH AFTER 72 HOURS OF INCUBATION. Resulted Assessment/Plan Assessment/Plan Impression: Acute hypoxic respiratory failure 2/2 pneumonia and AE COPD Acute on chronic COPD exacerbation COPD/Emphysema Pneumonia likely GNR vs GPC Right pleural effusion Atelectasis, compressive Lung granulomas, pulmonary soft tissue nodules up to 10 mm Nicotine dependence Chronic Vertebral body T5 compression Events: Remains on supplemental oxygen, 2 LPM [place] Taper O2 as tolerated Continue bronchodilators Continue antibiotics Incentive spirometry Physical therapy Assess for home O2 requirements Disposition per hospitalist. Labs and imaging reviewed. Rest of plan as noted below. Plan Supplemental oxygen Keep o2 saturation above 92% Bronchodilators. IV antibiotics F/u cultures. IS for atelectasis Will do limited chest US in AM to assess if pleural effusion amenable for thoracentesis. Smoking cessation discussed greater than 10 minutes. Deferred NRT. Antiemetics DVT prophylaxis. Prognosis: Poor given patient's multiple co-morbidities. Rest of plan per hospitalist and other consultants. Thank you, DAVID Burnett, for allowing me to participate in this patient's care. Further recommendations will depend on the patient's clinical course. Please do not hesitate to contact me if you have any questions or concerns. This medical document was created using an electronic medical record system with [employer] dictation system. Although these documentations are being carefully reviewed, there may still be some phonetic and typographical changes. The errors are purely typographical, due to imperfection on the software program, and do not reflect any compromise in the patient's medical care. Plan discussed with: Patient, Other (LAVONNE Lozada) Date of Service: Mar 24, 2025 Billing Provider: SIGIFREDO PADRON MD Common Visit Codes: [id number] INP/OBS CARE(HIGH) SIGIFREDO PADRON MD Mar 26, 2025 18:30
--- NOTE | 2025-03-26 22:53 | DVHPN2 ---
Subjective DOS: 03/25/2025 Patient seen and examined at bedside. Remains on supplemental oxygen Overnight events reviewed. Reviewed: Care Plan, H&P, Labs, Medications, Previous Orders, Radiology Changes from previous H/P or p: No Changes Respiratory: Shortness of breath Objective Vitals Vital Signs Date Time Temp Pulse Resp B/P (MAP) Pulse Ox O2 Delivery O2 Flow Rate FiO2 03/26/25 22:33 88 18 94 03/26/25 22:25 Nasal Cannula 5.0 03/26/25 22:25 40 03/26/25 21:00 99.0 112/75 (87) 99.0 Intake/Output Intake and Output 03/26/25 07:00 Intake Total 370 ml Output Total 970 ml Balance -600 ml Intake Oral 370 ml Output Urine Total 970 ml General Appearance: Alert, Cooperative, No acute distress HEENT: Atraumatic, PERRLA, EOMI, Mucous membr. moist/pink Neck: Supple Lungs: Clear to auscultation, Normal air movement Cardiovascular: Regular rate, Normal S1, Normal S2, No murmurs, Gallops, Rubs Abdomen: Normal bowel sounds, Soft, No tenderness Neuro: Cranial nerves 3-12 NL Psych/Mental Status: Mental status NL Medications Current Medications Medications Dose Ordered Sig/Nic Route Start Time Stop Time Status Last Admin Dose Admin Ondansetron HCl 4 mg Q4HP PRN IV 03/23/25 11:00 Acetaminophen 650 mg Q6HP PRN PO 03/23/25 11:00 Ceftriaxone Sodium 50 ml @ 100 mls/hr DAILY@09 IV 03/23/25 11:00 03/26/25 09:13 100 MLS/HR Albuterol 2.5 mg Q4HWA NEB 03/23/25 14:00 03/26/25 22:25 2.5 MG Ipratropium [place] 0.5 mg Q4HWA NEB 03/23/25 14:00 03/26/25 22:25 0.5 MG Laboratory Results Laboratory Tests 03/26/25 05:36 Chemistry Test 03/26/25 05:36 Calcium Level 9.0 mg/dL (8.7-10.4) Urinalysis Test 03/22/25 22:17 Urine Color Yellow (Yellow) Urine Clarity Clear (Clear) Urine pH 5.5 (5.0-9.0) Urine Specific [place] 1.020 (1.001-1.035) Urine Protein Trace (Negative) H Urine Ketones Negative (Negative) Urine Blood Negative /uL (Negative) Urine Nitrite 2+ (Negative) H Urine Bilirubin Negative (Negative) Urine Urobilinogen Normal mg/dL (Negative) Urine Leukocyte Esterase Negative /uL (Negative) Urine RBC <1 /hpf (0 - 3) Urine Microscopic WBC 2 /HPF (0-3) Urine Squamous Epithelial Cells Few /hpf (<5) Urine Amorphous Crystals Few /hpf (None Seen) Urine Bacteria Few /hpf (None Seen) H Urine Hyaline Casts Few /lpf (0 - 2) Urine Mucus Few (None Seen) Urine Glucose Normal mg/dL (Normal) Microbiology Microbiology Date/Time Source Procedure Growth Status 03/22/25 18:10 Blood Blood Culture - Preliminary NO GROWTH AFTER 72 HOURS OF INCUBATION. Resulted Assessment/Plan Assessment/Plan Impression: Acute hypoxic respiratory failure 2/2 pneumonia and AE COPD Acute on chronic COPD exacerbation COPD/Emphysema Pneumonia likely GNR vs GPC Right pleural effusion Atelectasis, compressive Lung granulomas, pulmonary soft tissue nodules up to 10 mm Nicotine dependence Chronic Vertebral body T5 compression Events: Remains on supplemental oxygen, 2 LPM [place] Taper O2 as tolerated Continue bronchodilators Continue antibiotics Blood cx negative x72 hours Incentive spirometry Monitor hemoglobin Physical therapy Assess for home O2 requirements Disposition per hospitalist. Labs and imaging reviewed. Rest of plan as noted below. Plan Supplemental oxygen Keep o2 saturation above 92% Bronchodilators. IV antibiotics F/u cultures. IS for atelectasis Smoking cessation discussed greater than 10 minutes. Deferred NRT. Antiemetics DVT prophylaxis. Prognosis: Poor given patient's multiple co-morbidities. Rest of plan per hospitalist and other consultants. Thank you, DAVID Burnett, for allowing me to participate in this patient's care. Further recommendations will depend on the patient's clinical course. Please do not hesitate to contact me if you have any questions or concerns. This medical document was created using an electronic medical record system with [employer] dictation system. Although these documentations are being carefully reviewed, there may still be some phonetic and typographical changes. The errors are purely typographical, due to imperfection on the software program, and do not reflect any compromise in the patient's medical care. Plan discussed with: Patient, Other (RN) Date of Service: Mar 25, 2025 Billing Provider: SIGIFREDO PADRON MD Common Visit Codes: [id number] INP/OBS CARE(HIGH) SIGIFREDO PADRON MD Mar 26, 2025 22:52
--- NOTE | 2025-03-26 23:27 | DVHPN2 ---
Subjective DOS: 03/26/2025 Patient seen and examined at bedside. Remains on supplemental oxygen Overnight events reviewed. Reviewed: Care Plan, H&P, Labs, Medications, Previous Orders, Radiology Changes from previous H/P or p: No Changes Respiratory: Shortness of breath Objective Vitals Vital Signs Date Time Temp Pulse Resp B/P (MAP) Pulse Ox O2 Delivery O2 Flow Rate FiO2 03/26/25 22:33 88 18 94 03/26/25 22:25 Nasal Cannula 5.0 03/26/25 22:25 40 03/26/25 21:00 99.0 112/75 (87) 99.0 Intake/Output Intake and Output 03/26/25 07:00 Intake Total 370 ml Output Total 970 ml Balance -600 ml Intake Oral 370 ml Output Urine Total 970 ml General Appearance: Alert, Cooperative, No acute distress HEENT: Atraumatic, PERRLA, EOMI, Mucous membr. moist/pink Neck: Supple Lungs: Clear to auscultation, Normal air movement Cardiovascular: Regular rate, Normal S1, Normal S2, No murmurs, Gallops, Rubs Abdomen: Normal bowel sounds, Soft, No tenderness Neuro: Cranial nerves 3-12 NL Psych/Mental Status: Mental status NL Medications Current Medications Medications Dose Ordered Sig/Nic Route Start Time Stop Time Status Last Admin Dose Admin Ondansetron HCl 4 mg Q4HP PRN IV 03/23/25 11:00 Acetaminophen 650 mg Q6HP PRN PO 03/23/25 11:00 Ceftriaxone Sodium 50 ml @ 100 mls/hr DAILY@09 IV 03/23/25 11:00 03/26/25 09:13 100 MLS/HR Albuterol 2.5 mg Q4HWA NEB 03/23/25 14:00 03/26/25 22:25 2.5 MG Ipratropium [place] 0.5 mg Q4HWA NEB 03/23/25 14:00 03/26/25 22:25 0.5 MG Laboratory Results Laboratory Tests 03/26/25 05:36 Chemistry Test 03/26/25 05:36 Calcium Level 9.0 mg/dL (8.7-10.4) Urinalysis Test 03/22/25 22:17 Urine Color Yellow (Yellow) Urine Clarity Clear (Clear) Urine pH 5.5 (5.0-9.0) Urine Specific [place] 1.020 (1.001-1.035) Urine Protein Trace (Negative) H Urine Ketones Negative (Negative) Urine Blood Negative /uL (Negative) Urine Nitrite 2+ (Negative) H Urine Bilirubin Negative (Negative) Urine Urobilinogen Normal mg/dL (Negative) Urine Leukocyte Esterase Negative /uL (Negative) Urine RBC <1 /hpf (0 - 3) Urine Microscopic WBC 2 /HPF (0-3) Urine Squamous Epithelial Cells Few /hpf (<5) Urine Amorphous Crystals Few /hpf (None Seen) Urine Bacteria Few /hpf (None Seen) H Urine Hyaline Casts Few /lpf (0 - 2) Urine Mucus Few (None Seen) Urine Glucose Normal mg/dL (Normal) Microbiology Microbiology Date/Time Source Procedure Growth Status 03/22/25 18:10 Blood Blood Culture - Preliminary NO GROWTH AFTER 72 HOURS OF INCUBATION. Resulted Assessment/Plan Assessment/Plan Impression: Acute hypoxic respiratory failure 2/2 pneumonia and AE COPD Acute on chronic COPD exacerbation COPD/Emphysema Pneumonia likely GNR vs GPC Right pleural effusion Atelectasis, compressive Lung granulomas, pulmonary soft tissue nodules up to 10 mm Nicotine dependence Chronic Vertebral body T5 compression Events: Remains on supplemental oxygen, 5 LPM [place] Taper O2 as tolerated Continue bronchodilators Continue antibiotics Blood cx negative thus far. Incentive spirometry Monitor hemoglobin Physical therapy Assess for home O2 requirements Disposition per hospitalist. Labs and imaging reviewed. Rest of plan as noted below. Plan Supplemental oxygen Keep o2 saturation above 92% Bronchodilators. IV antibiotics F/u cultures. IS for atelectasis Smoking cessation discussed greater than 10 minutes. Deferred NRT. Antiemetics DVT prophylaxis. Prognosis: Poor given patient's multiple co-morbidities. Rest of plan per hospitalist and other consultants. Thank you, DAVID Burnett, for allowing me to participate in this patient's care. Further recommendations will depend on the patient's clinical course. Please do not hesitate to contact me if you have any questions or concerns. This medical document was created using an electronic medical record system with [employer] dictation system. Although these documentations are being carefully reviewed, there may still be some phonetic and typographical changes. The errors are purely typographical, due to imperfection on the software program, and do not reflect any compromise in the patient's medical care. Plan discussed with: Patient, Other (LAVONNE Puri) Date of Service: Mar 26, 2025 Billing Provider: SIGIFREDO PADRON MD Common Visit Codes: [id number] INP/OBS CARE(HIGH) SIGIFREDO PADRON MD Mar 26, 2025 23:27
[2025-03-27] VITALS (16 sets, daily range): BP systolic 99–113; BP diastolic 62–80; PULSE 74–99; RESP 16–24; TEMP 97.8–99.2; O2SAT 91–96
[2025-03-27 05:45] LABS: Hematocrit 36.2 % (41.0-53.0); Hemoglobin 12.6 g/dL (13.5-17.5); Mean Corpuscular Hemoglobin 33.7 pg (28.0-32.0); Mean Corpuscular Volume 96.9 fL (80.0-100.0); Nucleated Red Blood Cells % 0.1 %
[2025-03-27 05:53] LABS: Calcium 9.2 mg/dL (8.7-10.4); Chloride 99 mmol/L (98-107); Potassium 4.3 mmol/L (3.5-5.1)
[2025-03-27 05:54] LABS: Anion Gap 10 (5-15); Carbon Dioxide 27 mmol/L (20-31)
[2025-03-27 05:55] LABS: Sodium 136 mmol/L (136-145)
[2025-03-27 05:59] LABS: BUN/Creatinine Ratio 13.1 (10.0-20.0); Blood Urea Nitrogen 11 mg/dL (9-23); Glucose 102 mg/dL (74-106)
--- NOTE | 2025-03-27 11:46 | DVHPN2 ---
Subjective The patient is seen and examined at bedside. The patient is still have shortness a breath. Reviewed: Care Plan, H&P, Labs, Medications, Previous Orders, Radiology Changes from previous H/P or p: No Changes Respiratory: Shortness of breath Objective Vitals Vital Signs Date Time Temp Pulse Resp B/P (MAP) Pulse Ox O2 Delivery O2 Flow Rate FiO2 03/27/25 10:39 87 20 96 03/27/25 10:33 Nasal Cannula 5.0 03/27/25 10:33 40 03/27/25 09:00 98.8 105/66 (79) 98.8 Intake/Output Intake and Output 03/27/25 07:00 Intake Total 1200 ml Output Total 1700 ml Balance -500 ml Intake Oral 1150 ml IV Total 50 ml Output Urine Total 1700 ml General Appearance: Alert, Cooperative, No acute distress HEENT: Atraumatic, PERRLA, EOMI, Mucous membr. moist/pink Neck: Supple Lungs: Clear to auscultation, Normal air movement Cardiovascular: Regular rate, Normal S1, Normal S2, No murmurs, Gallops, Rubs Abdomen: Normal bowel sounds, Soft, No tenderness Neuro: Cranial nerves 3-12 NL Psych/Mental Status: Mental status NL Medications Current Medications Medications Dose Ordered Sig/Nic Route Start Time Stop Time Status Last Admin Dose Admin Ondansetron HCl 4 mg Q4HP PRN IV 03/23/25 11:00 Acetaminophen 650 mg Q6HP PRN PO 03/23/25 11:00 Ceftriaxone Sodium 50 ml @ 100 mls/hr DAILY@09 IV 03/23/25 11:00 03/27/25 09:18 100 MLS/HR Albuterol 2.5 mg Q4HWA NEB 03/23/25 14:00 03/27/25 10:33 2.5 MG Ipratropium [place] 0.5 mg Q4HWA NEB 03/23/25 14:00 03/27/25 10:33 0.5 MG Laboratory Results Laboratory Tests 03/27/25 04:48 Chemistry Test 03/27/25 04:48 Calcium Level 9.2 mg/dL (8.7-10.4) Urinalysis Test 03/22/25 22:17 Urine Color Yellow (Yellow) Urine Clarity Clear (Clear) Urine pH 5.5 (5.0-9.0) Urine Specific [place] 1.020 (1.001-1.035) Urine Protein Trace (Negative) H Urine Ketones Negative (Negative) Urine Blood Negative /uL (Negative) Urine Nitrite 2+ (Negative) H Urine Bilirubin Negative (Negative) Urine Urobilinogen Normal mg/dL (Negative) Urine Leukocyte Esterase Negative /uL (Negative) Urine RBC <1 /hpf (0 - 3) Urine Microscopic WBC 2 /HPF (0-3) Urine Squamous Epithelial Cells Few /hpf (<5) Urine Amorphous Crystals Few /hpf (None Seen) Urine Bacteria Few /hpf (None Seen) H Urine Hyaline Casts Few /lpf (0 - 2) Urine Mucus Few (None Seen) Urine Glucose Normal mg/dL (Normal) Microbiology Microbiology Date/Time Source Procedure Growth Status 03/22/25 18:10 Blood Blood Culture - Preliminary NO GROWTH AFTER 72 HOURS OF INCUBATION. Resulted Assessment/Plan Assessment/Plan Leukocytosis possibly PNA HUGO likely prerenal Right-sided pleural effusion Acute cystitis Acute on chronic COPD exacerbation rule out PE Interstitial airspace opacities which could represent sequela of pulmonary edema, atypical infection, chronic lung changes/disease. Bilateral pulmonary nodules that are calcified consistent with remote granulomatous disease. Extensive pulmonary calcified nodule consistent with remote granulomatous disease. Pulmonary soft tissue nodules up to 10 mm Small right pleural pleural effusion Tobacco use History of COPD History of AFib History of hypertension History of anxiety History of depression History of congenital heart disease History of AAA History of left shoulder surgery Plan Continuing current management. CT chest showed no PE. This had extensive emphysema on imaging studying. Continuing IV antibiotic Rocephin and Zithromax. Continuing with nebulizer. Pulmonology consulted for nodule of lung. We will follow up. Continuing with sliding scale insulin. Continuing with statin. Continue to wean down oxygen. Right now he on 5 L NC. Will try to wean it down to his baseline oxygen at home which is 3L This medical document was created using an electronic medical record system with [employer] computerized dictation system. Although this document has been carefully reviewed, there may still be some phonetic and typographical errors. These areas are purely typographical due to imperfections of the software programs, and do not reflect any compromise in the patient's medical care. Plan discussed with: Patient Date of Service: Mar 27, 2025 Billing Provider: CRISTIAN PERERA MD Common Visit Codes: [id number] INP/OBS CARE(HIGH) CRISTIAN PERERA MD Mar 27, 2025 11:46
--- NOTE | 2025-03-27 21:51 | DVHPN2 ---
Subjective DOS: 03/27/2025 Patient seen and examined at bedside. Remains on supplemental oxygen Overnight events reviewed. Reviewed: Care Plan, H&P, Labs, Medications, Previous Orders, Radiology Changes from previous H/P or p: No Changes Respiratory: Shortness of breath Objective Vitals Vital Signs Date Time Temp Pulse Resp B/P (MAP) Pulse Ox O2 Delivery O2 Flow Rate FiO2 03/27/25 21:00 98.4 97 17 99/67 (78) 92 98.4 03/27/25 20:00 Nasal Cannula* 3 32 Intake/Output Intake and Output 03/27/25 07:00 Intake Total 1200 ml Output Total 1700 ml Balance -500 ml Intake Oral 1150 ml IV Total 50 ml Output Urine Total 1700 ml General Appearance: Alert, Cooperative, No acute distress HEENT: Atraumatic, PERRLA, EOMI, Mucous membr. moist/pink Neck: Supple Lungs: Clear to auscultation, Normal air movement Cardiovascular: Regular rate, Normal S1, Normal S2, No murmurs, Gallops, Rubs Abdomen: Normal bowel sounds, Soft, No tenderness Neuro: Cranial nerves 3-12 NL Psych/Mental Status: Mental status NL Medications Current Medications Medications Dose Ordered Sig/Nic Route Start Time Stop Time Status Last Admin Dose Admin Ondansetron HCl 4 mg Q4HP PRN IV 03/23/25 11:00 Acetaminophen 650 mg Q6HP PRN PO 03/23/25 11:00 Ceftriaxone Sodium 50 ml @ 100 mls/hr DAILY@09 IV 03/23/25 11:00 03/27/25 09:18 100 MLS/HR Albuterol 2.5 mg Q4HWA NEB 03/23/25 14:00 03/27/25 18:41 2.5 MG Ipratropium [place] 0.5 mg Q4HWA NEB 03/23/25 14:00 03/27/25 18:41 0.5 MG Laboratory Results Laboratory Tests 03/27/25 04:48 Chemistry Test 03/27/25 04:48 Calcium Level 9.2 mg/dL (8.7-10.4) Urinalysis Test 03/22/25 22:17 Urine Color Yellow (Yellow) Urine Clarity Clear (Clear) Urine pH 5.5 (5.0-9.0) Urine Specific [place] 1.020 (1.001-1.035) Urine Protein Trace (Negative) H Urine Ketones Negative (Negative) Urine Blood Negative /uL (Negative) Urine Nitrite 2+ (Negative) H Urine Bilirubin Negative (Negative) Urine Urobilinogen Normal mg/dL (Negative) Urine Leukocyte Esterase Negative /uL (Negative) Urine RBC <1 /hpf (0 - 3) Urine Microscopic WBC 2 /HPF (0-3) Urine Squamous Epithelial Cells Few /hpf (<5) Urine Amorphous Crystals Few /hpf (None Seen) Urine Bacteria Few /hpf (None Seen) H Urine Hyaline Casts Few /lpf (0 - 2) Urine Mucus Few (None Seen) Urine Glucose Normal mg/dL (Normal) Microbiology Microbiology Date/Time Source Procedure Growth Status 03/22/25 18:10 Blood Blood Culture - Final NO GROWTH AFTER 5 DAYS OF INCUBATION. Complete Assessment/Plan Assessment/Plan Impression: Acute hypoxic respiratory failure 2/2 pneumonia and AE COPD Acute on chronic COPD exacerbation COPD/Emphysema Pneumonia likely GNR vs GPC Right pleural effusion Atelectasis, compressive Lung granulomas, pulmonary soft tissue nodules up to 10 mm Nicotine dependence Chronic Vertebral body T5 compression Events: Remains on supplemental oxygen, 3 LPM [place] Taper O2 as tolerated Improving oxygen requirements Continue bronchodilators Complete antibiotic course Incentive spirometry DVT prophylaxis Patient is refusing physical therapy Disposition per hospitalist. Patient has home oxygen Labs and imaging reviewed. Rest of plan as noted below. Plan Supplemental oxygen Keep o2 saturation above 92% Bronchodilators. IV antibiotics F/u cultures. IS for atelectasis Smoking cessation discussed greater than 10 minutes. Deferred NRT. Monitor hemoglobin DVT prophylaxis. Prognosis: Poor given patient's multiple co-morbidities. Rest of plan per hospitalist and other consultants. Thank you, DAVID Burnett, for allowing me to participate in this patient's care. Further recommendations will depend on the patient's clinical course. Please do not hesitate to contact me if you have any questions or concerns. This medical document was created using an electronic medical record system with [employer] dictation system. Although these documentations are being carefully reviewed, there may still be some phonetic and typographical changes. The errors are purely typographical, due to imperfection on the software program, and do not reflect any compromise in the patient's medical care. Plan discussed with: Other (LAVONNE Puri) Date of Service: Mar 27, 2025 Billing Provider: SIGIFREDO PADRON MD Common Visit Codes: [id number] INP/OBS CARE(HIGH) SIGIFREDO PADRON MD Mar 27, 2025 21:51
[2025-03-28] VITALS (15 sets, daily range): BP systolic 93–127; BP diastolic 55–83; PULSE 72–97; RESP 14–18; TEMP 97.3–98.9; O2SAT 85–96
[2025-03-28 07:28] LABS: Hematocrit 37.7 % (41.0-53.0); Hemoglobin 13.2 g/dL (13.5-17.5); Mean Corpuscular Hemoglobin 33.6 pg (28.0-32.0); Mean Corpuscular Volume 96.4 fL (80.0-100.0); Nucleated Red Blood Cells % 0.1 %
[2025-03-28 07:33] LABS: Chloride 99 mmol/L (98-107); Potassium 4.4 mmol/L (3.5-5.1)
[2025-03-28 07:34] LABS: Anion Gap 9 (5-15); Calcium 9.2 mg/dL (8.7-10.4); Carbon Dioxide 27 mmol/L (20-31)
[2025-03-28 07:36] LABS: Sodium 135 mmol/L (136-145)
[2025-03-28 07:39] LABS: BUN/Creatinine Ratio 18.9 (10.0-20.0); Blood Urea Nitrogen 18 mg/dL (9-23); Glucose 98 mg/dL (74-106)
--- NOTE | 2025-03-28 11:39 | DVHPN2 ---
Subjective The patient is seen and examined at bedside. The patient is still have shortness a breath. Remained very weak. The RN tried to wean the patient down to 3 L of oxygen which is his baseline but the saturation oxygen dropped to 88% Reviewed: Care Plan, H&P, Labs, Medications, Previous Orders, Radiology Changes from previous H/P or p: No Changes Respiratory: Shortness of breath Objective Vitals Vital Signs Date Time Temp Pulse Resp B/P (MAP) Pulse Ox O2 Delivery O2 Flow Rate FiO2 03/28/25 10:39 74 16 95 03/28/25 08:30 98.9 93/55 (68) 98.9 03/28/25 08:00 Nasal Cannula* 3 32 Intake/Output Intake and Output 03/28/25 07:00 Intake Total 700 ml Output Total 1900 ml Balance -1200 ml Intake Oral 700 ml Output Urine Total 1900 ml General Appearance: Alert, Cooperative, No acute distress HEENT: Atraumatic, PERRLA, EOMI, Mucous membr. moist/pink Neck: Supple Lungs: Clear to auscultation, Normal air movement Cardiovascular: Regular rate, Normal S1, Normal S2, No murmurs, Gallops, Rubs Abdomen: Normal bowel sounds, Soft, No tenderness Neuro: Cranial nerves 3-12 NL Psych/Mental Status: Mental status NL Medications Current Medications Medications Dose Ordered Sig/Nic Route Start Time Stop Time Status Last Admin Dose Admin Ondansetron HCl 4 mg Q4HP PRN IV 03/23/25 11:00 Acetaminophen 650 mg Q6HP PRN PO 03/23/25 11:00 Ceftriaxone Sodium 50 ml @ 100 mls/hr DAILY@09 IV 03/23/25 11:00 03/28/25 09:04 100 MLS/HR Albuterol 2.5 mg Q4HWA NEB 03/23/25 14:00 03/28/25 10:31 2.5 MG Ipratropium [place] 0.5 mg Q4HWA NEB 03/23/25 14:00 03/28/25 10:31 0.5 MG Laboratory Results Laboratory Tests 03/28/25 06:59 Chemistry Test 03/28/25 06:59 Calcium Level 9.2 mg/dL (8.7-10.4) Urinalysis Test 03/22/25 22:17 Urine Color Yellow (Yellow) Urine Clarity Clear (Clear) Urine pH 5.5 (5.0-9.0) Urine Specific [place] 1.020 (1.001-1.035) Urine Protein Trace (Negative) H Urine Ketones Negative (Negative) Urine Blood Negative /uL (Negative) Urine Nitrite 2+ (Negative) H Urine Bilirubin Negative (Negative) Urine Urobilinogen Normal mg/dL (Negative) Urine Leukocyte Esterase Negative /uL (Negative) Urine RBC <1 /hpf (0 - 3) Urine Microscopic WBC 2 /HPF (0-3) Urine Squamous Epithelial Cells Few /hpf (<5) Urine Amorphous Crystals Few /hpf (None Seen) Urine Bacteria Few /hpf (None Seen) H Urine Hyaline Casts Few /lpf (0 - 2) Urine Mucus Few (None Seen) Urine Glucose Normal mg/dL (Normal) Microbiology Microbiology Date/Time Source Procedure Growth Status 03/22/25 18:10 Blood Blood Culture - Final NO GROWTH AFTER 5 DAYS OF INCUBATION. Complete Labs and/or images reviewed: Labs reviewed by me Assessment/Plan Assessment/Plan Leukocytosis possibly PNA HUGO likely prerenal Right-sided pleural effusion Acute cystitis Acute on chronic COPD exacerbation rule out PE Interstitial airspace opacities which could represent sequela of pulmonary edema, atypical infection, chronic lung changes/disease. Bilateral pulmonary nodules that are calcified consistent with remote granulomatous disease. Extensive pulmonary calcified nodule consistent with remote granulomatous disease. Pulmonary soft tissue nodules up to 10 mm Small right pleural pleural effusion Tobacco use History of COPD History of AFib History of hypertension History of anxiety History of depression History of congenital heart disease History of AAA History of left shoulder surgery Plan Continuing current management. CT chest showed no PE. This had extensive emphysema on imaging studying. Continuing IV antibiotic Rocephin and Zithromax. Continuing with nebulizer. Pulmonology consulted for nodule of lung. We will follow up. Continuing with sliding scale insulin. Continuing with statin. Continue to wean down oxygen. Right now he on 5 L NC. Will try to wean it down to his baseline oxygen at home which is 3L We will consult physical therapist to get the patient out of bed and ambulate. This medical document was created using an electronic medical record system with [employer] direct computerized dictation system. Although this document has been carefully reviewed, there may still be some phonetic and typographical errors. These areas are purely typographical due to imperfections of the software programs, and do not reflect any compromise in the patient's medical care. This medical document was created using an electronic medical record system with [employer] direct computerized dictation system. Although this document has been carefully reviewed, there may still be some phonetic and typographical errors. These areas are purely typographical due to imperfections of the software programs, and do not reflect any compromise in the patient's medical care. Plan discussed with: Patient Date of Service: Mar 28, 2025 Billing Provider: CRISTIAN PERERA MD Common Visit Codes: [id number] INP/OBS CARE(HIGH) CRISTIAN PERERA MD Mar 28, 2025 11:39
--- NOTE | 2025-03-28 11:42 | DVHPN2 ---
Subjective The patient is seen and examined at bedside. The patient is still have shortness a breath. Reviewed: Care Plan, H&P, Labs, Medications, Previous Orders, Radiology Respiratory: Shortness of breath Objective Vitals Vital Signs Date Time Temp Pulse Resp B/P (MAP) Pulse Ox O2 Delivery O2 Flow Rate FiO2 03/28/25 10:39 74 16 95 03/28/25 08:30 98.9 93/55 (68) 98.9 03/28/25 08:00 Nasal Cannula* 3 32 Intake/Output Intake and Output 03/28/25 07:00 Intake Total 700 ml Output Total 1900 ml Balance -1200 ml Intake Oral 700 ml Output Urine Total 1900 ml General Appearance: Alert, Cooperative, No acute distress HEENT: Atraumatic, PERRLA, EOMI, Mucous membr. moist/pink Neck: Supple Lungs: Clear to auscultation, Normal air movement Cardiovascular: Regular rate, Normal S1, Normal S2, No murmurs, Gallops, Rubs Abdomen: Normal bowel sounds, Soft, No tenderness Neuro: Cranial nerves 3-12 NL Psych/Mental Status: Mental status NL Medications Current Medications Medications Dose Ordered Sig/Nic Route Start Time Stop Time Status Last Admin Dose Admin Ondansetron HCl 4 mg Q4HP PRN IV 03/23/25 11:00 Acetaminophen 650 mg Q6HP PRN PO 03/23/25 11:00 Ceftriaxone Sodium 50 ml @ 100 mls/hr DAILY@09 IV 03/23/25 11:00 03/28/25 09:04 100 MLS/HR Albuterol 2.5 mg Q4HWA [facility] 03/23/25 14:00 03/28/25 10:31 2.5 MG Ipratropium [place] 0.5 mg Q4HWA [facility] 03/23/25 14:00 03/28/25 10:31 0.5 MG Laboratory Results Laboratory Tests 03/28/25 06:59 Chemistry Test 03/28/25 06:59 Calcium Level 9.2 mg/dL (8.7-10.4) Urinalysis Test 03/22/25 22:17 Urine Color Yellow (Yellow) Urine Clarity Clear (Clear) Urine pH 5.5 (5.0-9.0) Urine Specific [place] 1.020 (1.001-1.035) Urine Protein Trace (Negative) H Urine Ketones Negative (Negative) Urine Blood Negative /uL (Negative) Urine Nitrite 2+ (Negative) H Urine Bilirubin Negative (Negative) Urine Urobilinogen Normal mg/dL (Negative) Urine Leukocyte Esterase Negative /uL (Negative) Urine RBC <1 /hpf (0 - 3) Urine Microscopic WBC 2 /HPF (0-3) Urine Squamous Epithelial Cells Few /hpf (<5) Urine Amorphous Crystals Few /hpf (None Seen) Urine Bacteria Few /hpf (None Seen) H Urine Hyaline Casts Few /lpf (0 - 2) Urine Mucus Few (None Seen) Urine Glucose Normal mg/dL (Normal) Microbiology Microbiology Date/Time Source Procedure Growth Status 03/22/25 18:10 Blood Blood Culture - Final NO GROWTH AFTER 5 DAYS OF INCUBATION. Complete Assessment/Plan Assessment/Plan Leukocytosis possibly PNA HUGO likely prerenal Right-sided pleural effusion Acute cystitis Acute on chronic COPD exacerbation rule out PE Interstitial airspace opacities which could represent sequela of pulmonary edema, atypical infection, chronic lung changes/disease. Bilateral pulmonary nodules that are calcified consistent with remote granulomatous disease. Extensive pulmonary calcified nodule consistent with remote granulomatous disease. Pulmonary soft tissue nodules up to 10 mm Small right pleural pleural effusion Tobacco use History of COPD History of AFib History of hypertension History of anxiety History of depression History of congenital heart disease History of AAA History of left shoulder surgery Plan Continuing current management. CT chest showed no PE. This had extensive emphysema on imaging studying. Continuing IV antibiotic Rocephin and Zithromax. Continuing with nebulizer. Pulmonology consulted for nodule of lung. We will follow up. Continuing with sliding scale insulin. Continuing with statin. Continue to wean down oxygen. Right now he on 5 L NC. Will try to wean it down to his baseline oxygen at home which is 3L This medical document was created using an electronic medical record system with [employer] direct computerized dictation system. Although this document has been carefully reviewed, there may still be some phonetic and typographical errors. These areas are purely typographical due to imperfections of the software programs, and do not reflect any compromise in the patient's medical care. CRISTIAN PERERA MD Mar 28, 2025 11:42
--- NOTE | 2025-03-28 14:24 | DVH ---
INDICATION: pulmonary congestion TECHNIQUE: Frontal view of the chest. COMPARISON: CT CHEST WITHOUT CONTRAST on DOS: 03/23/25, XY CHEST PORTABLE on DOS: 03/22/25, XY CHEST PO RTABLE on DOS: 01/04/25, XY CHEST XRAY 1 VIEW on DOS: 10/19/23, XY CHEST PORTABLE on DOS: 06/30/23 FINDINGS: Extensive pulmonary calcified nodule consistent with remote granulomatous disease.. The heart and med iastinal contours are grossly unremarkable. There is no evidence of pleural disease. Right basilar o pacity. The bony structures of the chest are intact without fracture. IMPRESSION: 1. Right basilar opacity
--- NOTE | 2025-03-28 19:25 | DVHPN2 ---
Subjective DOS: 03/28/2025 Patient seen and examined at bedside. Remains on supplemental oxygen Overnight events reviewed. Reviewed: Care Plan, H&P, Labs, Medications, Previous Orders, Radiology Changes from previous H/P or p: No Changes Respiratory: Shortness of breath Objective Vitals Vital Signs Date Time Temp Pulse Resp B/P (MAP) Pulse Ox O2 Delivery O2 Flow Rate FiO2 03/28/25 18:34 92 3.0 03/28/25 18:34 90 16 03/28/25 18:34 Nasal Cannula* 32 03/28/25 16:26 97.7 127/83 (98) 97.7 Intake/Output Intake and Output 03/28/25 07:00 Intake Total 750 ml Output Total 1900 ml Balance -1150 ml Intake Oral 700 ml IV Total 50 ml Output Urine Total 1900 ml General Appearance: Alert, Cooperative, No acute distress HEENT: Atraumatic, PERRLA, EOMI, Mucous membr. moist/pink Neck: Supple Lungs: Clear to auscultation, Normal air movement Cardiovascular: Regular rate, Normal S1, Normal S2, No murmurs, Gallops, Rubs Abdomen: Normal bowel sounds, Soft, No tenderness Neuro: Cranial nerves 3-12 NL Psych/Mental Status: Mental status NL Medications Current Medications Medications Dose Ordered Sig/Nic Route Start Time Stop Time Status Last Admin Dose Admin Ondansetron HCl 4 mg Q4HP PRN IV 03/23/25 11:00 Acetaminophen 650 mg Q6HP PRN PO 03/23/25 11:00 Ceftriaxone Sodium 50 ml @ 100 mls/hr DAILY@09 IV 03/23/25 11:00 03/28/25 09:04 100 MLS/HR Albuterol 2.5 mg Q4HWA [facility] 03/23/25 14:00 03/28/25 18:34 2.5 MG Ipratropium [place] 0.5 mg Q4HWA [facility] 03/23/25 14:00 03/28/25 18:34 0.5 MG Laboratory Results Laboratory Tests 03/28/25 06:59 Chemistry Test 03/28/25 06:59 Calcium Level 9.2 mg/dL (8.7-10.4) Urinalysis Test 03/22/25 22:17 Urine Color Yellow (Yellow) Urine Clarity Clear (Clear) Urine pH 5.5 (5.0-9.0) Urine Specific [place] 1.020 (1.001-1.035) Urine Protein Trace (Negative) H Urine Ketones Negative (Negative) Urine Blood Negative /uL (Negative) Urine Nitrite 2+ (Negative) H Urine Bilirubin Negative (Negative) Urine Urobilinogen Normal mg/dL (Negative) Urine Leukocyte Esterase Negative /uL (Negative) Urine RBC <1 /hpf (0 - 3) Urine Microscopic WBC 2 /HPF (0-3) Urine Squamous Epithelial Cells Few /hpf (<5) Urine Amorphous Crystals Few /hpf (None Seen) Urine Bacteria Few /hpf (None Seen) H Urine Hyaline Casts Few /lpf (0 - 2) Urine Mucus Few (None Seen) Urine Glucose Normal mg/dL (Normal) Microbiology Microbiology Date/Time Source Procedure Growth Status 03/22/25 18:10 Blood Blood Culture - Final NO GROWTH AFTER 5 DAYS OF INCUBATION. Complete Assessment/Plan Assessment/Plan Impression: Acute hypoxic respiratory failure 2/2 pneumonia and AE COPD Acute on chronic COPD exacerbation COPD/Emphysema Pneumonia likely GNR vs GPC Right pleural effusion Atelectasis, compressive Lung granulomas, pulmonary soft tissue nodules up to 10 mm Nicotine dependence Chronic Vertebral body T5 compression Events: Remains on supplemental oxygen, 4 LPM [place] Taper O2 as tolerated Chest x-ray reviewed, notable for right basilar opacities. Continue bronchodilators Complete antibiotic course Incentive spirometry DVT prophylaxis Physical therapy Disposition per hospitalist. Labs and imaging reviewed. Rest of plan as noted below. Plan Supplemental oxygen Keep o2 saturation above 92% Bronchodilators. IV antibiotics F/u cultures. IS for atelectasis Smoking cessation discussed greater than 10 minutes. Deferred NRT. Monitor hemoglobin DVT prophylaxis. Prognosis: Poor given patient's multiple co-morbidities. Rest of plan per hospitalist and other consultants. Thank you, DAVID Burnett, for allowing me to participate in this patient's care. Further recommendations will depend on the patient's clinical course. Please do not hesitate to contact me if you have any questions or concerns. This medical document was created using an electronic medical record system with [employer] system. Although these documentations are being carefully reviewed, there may still be some phonetic and typographical changes. The errors are purely typographical, due to imperfection on the software program, and do not reflect any compromise in the patient's medical care. Plan discussed with: Patient, Other (RN Khushi) Visit Coding Pulmonary Billing Provider: SIGIFREDO PADRON MD Date of Service if different f: Mar 28, 2025 Common Visit Codes: [id number] INP/OBS CARE(HIGH) SIGIFREDO PADRON MD Mar 28, 2025 19:25
[2025-03-29] VITALS (19 sets, daily range): BP systolic 96–114; BP diastolic 54–79; PULSE 66–90; RESP 14–22; TEMP 97.7–98.3; O2SAT 88–97
--- NOTE | 2025-03-29 05:08 | DVH ---
CLINICAL INDICATION: rt knee pain TECHNIQUE: XY R KNEE 3V XRAY Comparison: None FINDINGS/IMPRESSION: : There is no evidence of acute fracture or dislocation. Moderate degenerative changes. Small joint effusion.
[2025-03-29 07:45] LABS: Hematocrit 39.4 % (41.0-53.0); Hemoglobin 13.6 g/dL (13.5-17.5); Mean Corpuscular Hemoglobin 33.8 pg (28.0-32.0); Mean Corpuscular Volume 97.9 fL (80.0-100.0); Nucleated Red Blood Cells % 0.0 %
[2025-03-29 07:46] LABS: Potassium 5.0 mmol/L (3.5-5.1)
[2025-03-29 07:47] LABS: Anion Gap 10 (5-15); Calcium 9.7 mg/dL (8.7-10.4); Carbon Dioxide 29 mmol/L (20-31)
[2025-03-29 07:52] LABS: BUN/Creatinine Ratio 18.8 (10.0-20.0); Blood Urea Nitrogen 18 mg/dL (9-23); Glucose 92 mg/dL (74-106)
[2025-03-29 07:53] LABS: Chloride 97 mmol/L (98-107); Sodium 136 mmol/L (136-145)
--- NOTE | 2025-03-29 13:24 | DVHPN2 ---
Reviewed: Care Plan, H&P, Labs, Medications, Previous Orders, Radiology Changes from previous H/P or p: No Changes General: Per HPI Respiratory: Shortness of breath Objective Vitals Vital Signs Date Time Temp Pulse Resp B/P (MAP) Pulse Ox O2 Delivery O2 Flow Rate FiO2 03/29/25 10:25 90 14 93 03/29/25 10:17 Nasal Cannula* 4 36 03/29/25 08:30 97.7 114/79 (91) 97.7 Intake/Output Intake and Output 03/29/25 07:00 Intake Total 720 ml Output Total 1000 ml Balance -280 ml Intake Oral 670 ml IV Total 50 ml Output Urine Total 1000 ml General Appearance: Alert, Cooperative, No acute distress HEENT: Atraumatic, PERRLA, EOMI, Mucous membr. moist/pink Neck: Supple Lungs: Clear to auscultation, Normal air movement Cardiovascular: Regular rate, Normal S1, Normal S2, No murmurs, Gallops, Rubs Abdomen: Normal bowel sounds, Soft, No tenderness Neuro: Cranial nerves 3-12 NL Psych/Mental Status: Mental status NL Medications Current Medications Medications Dose Ordered Sig/Nic Route Start Time Stop Time Status Last Admin Dose Admin Ondansetron HCl 4 mg Q4HP PRN IV 03/23/25 11:00 Acetaminophen 650 mg Q6HP PRN PO 03/23/25 11:00 Ceftriaxone Sodium 50 ml @ 100 mls/hr DAILY@09 IV 03/23/25 11:00 03/29/25 08:47 100 MLS/HR Albuterol 2.5 mg Q4HWA [facility] 03/23/25 14:00 03/29/25 10:17 2.5 MG Ipratropium [place] 0.5 mg Q4HWA [facility] 03/23/25 14:00 03/29/25 10:17 0.5 MG Laboratory Results Laboratory Tests 03/29/25 06:56 Chemistry Test 03/29/25 06:56 Calcium Level 9.7 mg/dL (8.7-10.4) Urinalysis Test 03/22/25 22:17 Urine Color Yellow (Yellow) Urine Clarity Clear (Clear) Urine pH 5.5 (5.0-9.0) Urine Specific [place] 1.020 (1.001-1.035) Urine Protein Trace (Negative) H Urine Ketones Negative (Negative) Urine Blood Negative /uL (Negative) Urine Nitrite 2+ (Negative) H Urine Bilirubin Negative (Negative) Urine Urobilinogen Normal mg/dL (Negative) Urine Leukocyte Esterase Negative /uL (Negative) Urine RBC <1 /hpf (0 - 3) Urine Microscopic WBC 2 /HPF (0-3) Urine Squamous Epithelial Cells Few /hpf (<5) Urine Amorphous Crystals Few /hpf (None Seen) Urine Bacteria Few /hpf (None Seen) H Urine Hyaline Casts Few /lpf (0 - 2) Urine Mucus Few (None Seen) Urine Glucose Normal mg/dL (Normal) Microbiology Microbiology Date/Time Source Procedure Growth Status 03/22/25 18:10 Blood Blood Culture - Final NO GROWTH AFTER 5 DAYS OF INCUBATION. Complete Assessment/Plan Assessment/Plan Leukocytosis possibly PNA HUGO likely prerenal Right-sided pleural effusion Acute cystitis Acute on chronic COPD exacerbation rule out PE Interstitial airspace opacities which could represent sequela of pulmonary edema, atypical infection, chronic lung changes/disease. Bilateral pulmonary nodules that are calcified consistent with remote granulomatous disease. Extensive pulmonary calcified nodule consistent with remote granulomatous disease. Pulmonary soft tissue nodules up to 10 mm Small right pleural pleural effusion Tobacco use History of COPD History of AFib History of hypertension History of anxiety History of depression History of congenital heart disease History of AAA History of left shoulder surgery Plan Continuing current management. CT chest showed no PE. This had extensive emphysema on imaging studying. Continuing IV antibiotic Rocephin and Zithromax. Continuing with nebulizer. Pulmonology consulted for nodule of lung. We will follow up. Continuing with sliding scale insulin. Continuing with statin. Continue to wean down oxygen. Right now he on 5 L NC. Will try to wean it down to his baseline oxygen at home which is 3L We will consult physical therapist to get the patient out of bed and ambulate. 03/29/2025: pt to work with PT/OT for evaluation of SNF criteria. pt is weak and cannot walk on his own This medical document was created using an electronic medical record system with [employer] direct computerized dictation system. Although this document has been carefully reviewed, there may still be some phonetic and typographical errors. These areas are purely typographical due to imperfections of the software programs, and do not reflect any compromise in the patient's medical care. Plan discussed with: Patient Date of Service: Mar 29, 2025 Billing Provider: LIZZETTE GOINS DO Common Visit Codes: [id number] INP/OBS CARE(HIGH) LIZZETTE GOINS DO Mar 29, 2025 13:24
[2025-03-29] MEDS: ACETAMINOPHEN 325 MG TAB PO PRN (14:16)
--- NOTE | 2025-03-29 21:30 | DVHPN2 ---
Subjective DOS: 03/29/2025 Patient seen and examined at bedside. Remains on supplemental oxygen Overnight events reviewed. Reviewed: Care Plan, H&P, Labs, Medications, Previous Orders, Radiology Changes from previous H/P or p: No Changes General: Per HPI Respiratory: Shortness of breath Objective Vitals Vital Signs Date Time Temp Pulse Resp B/P (MAP) Pulse Ox O2 Delivery O2 Flow Rate FiO2 03/29/25 20:52 97.9 77 19 96/54 (68) 96 97.9 03/29/25 19:25 Nasal Cannula* 4 36 Intake/Output Intake and Output 03/29/25 07:00 Intake Total 720 ml Output Total 1000 ml Balance -280 ml Intake Oral 670 ml IV Total 50 ml Output Urine Total 1000 ml General Appearance: Alert, Cooperative, No acute distress HEENT: Atraumatic, PERRLA, EOMI, Mucous membr. moist/pink Neck: Supple Lungs: Clear to auscultation, Normal air movement Cardiovascular: Regular rate, Normal S1, Normal S2, No murmurs, Gallops, Rubs Abdomen: Normal bowel sounds, Soft, No tenderness Neuro: Cranial nerves 3-12 NL Psych/Mental Status: Mental status NL Medications Current Medications Medications Dose Ordered Sig/Nic Route Start Time Stop Time Status Last Admin Dose Admin Ondansetron HCl 4 mg Q4HP PRN IV 03/23/25 11:00 Acetaminophen 650 mg Q6HP PRN PO 03/23/25 11:00 03/29/25 14:16 650 MG Ceftriaxone Sodium 50 ml @ 100 mls/hr DAILY@09 IV 03/23/25 11:00 03/29/25 08:47 100 MLS/HR Albuterol 2.5 mg Q4HWA [facility] 03/23/25 14:00 03/29/25 19:30 2.5 MG Ipratropium [place] 0.5 mg Q4HWA [facility] 03/23/25 14:00 03/29/25 19:30 0.5 MG Laboratory Results Laboratory Tests 03/29/25 06:56 Chemistry Test 03/29/25 06:56 Calcium Level 9.7 mg/dL (8.7-10.4) Urinalysis Test 03/22/25 22:17 Urine Color Yellow (Yellow) Urine Clarity Clear (Clear) Urine pH 5.5 (5.0-9.0) Urine Specific [place] 1.020 (1.001-1.035) Urine Protein Trace (Negative) H Urine Ketones Negative (Negative) Urine Blood Negative /uL (Negative) Urine Nitrite 2+ (Negative) H Urine Bilirubin Negative (Negative) Urine Urobilinogen Normal mg/dL (Negative) Urine Leukocyte Esterase Negative /uL (Negative) Urine RBC <1 /hpf (0 - 3) Urine Microscopic WBC 2 /HPF (0-3) Urine Squamous Epithelial Cells Few /hpf (<5) Urine Amorphous Crystals Few /hpf (None Seen) Urine Bacteria Few /hpf (None Seen) H Urine Hyaline Casts Few /lpf (0 - 2) Urine Mucus Few (None Seen) Urine Glucose Normal mg/dL (Normal) Microbiology Microbiology Date/Time Source Procedure Growth Status 03/22/25 18:10 Blood Blood Culture - Final NO GROWTH AFTER 5 DAYS OF INCUBATION. Complete Assessment/Plan Assessment/Plan Impression: Acute hypoxic respiratory failure 2/2 pneumonia and AE COPD Acute on chronic COPD exacerbation COPD/Emphysema Pneumonia likely GNR vs GPC Right pleural effusion Atelectasis, compressive Lung granulomas, pulmonary soft tissue nodules up to 10 mm Nicotine dependence Chronic Vertebral body T5 compression Events: Remains on supplemental oxygen, 4 LPM [place] Taper O2 as tolerated Chest x-ray on 03/28/25 notable for right basilar opacities. Continue bronchodilators Complete antibiotic course Incentive spirometry DVT prophylaxis Physical therapy evaluation Disposition per hospitalist. Labs and imaging reviewed. Rest of plan as noted below. Plan Supplemental oxygen Keep o2 saturation above 92% Bronchodilators. IV antibiotics F/u cultures. IS for atelectasis Smoking cessation discussed greater than 10 minutes. Deferred NRT. Monitor hemoglobin DVT prophylaxis. Prognosis: Guarded given patient's multiple co-morbidities. Rest of plan per hospitalist and other consultants. Thank you, DAVID Burnett, for allowing me to participate in this patient's care. Further recommendations will depend on the patient's clinical course. Please do not hesitate to contact me if you have any questions or concerns. This medical document was created using an electronic medical record system with [employer] dictation system. Although these documentations are being carefully reviewed, there may still be some phonetic and typographical changes. The errors are purely typographical, due to imperfection on the software program, and do not reflect any compromise in the patient's medical care. Plan discussed with: Patient, Other (RN Dayday) Visit Coding Pulmonary Billing Provider: PADRON,SIGIFREDO M MD Date of Service if different f: Mar 29, 2025 Common Visit Codes: [id number] INP/OBS CARE(HIGH) SIGIFREDO PADRON MD Mar 29, 2025 21:30
[2025-03-30] VITALS (17 sets, daily range): BP systolic 103–115; BP diastolic 57–79; PULSE 62–86; RESP 14–20; TEMP 97.5–98.8; O2SAT 88–100
--- NOTE | 2025-03-30 14:52 | DVHPN2 ---
Reviewed: Care Plan, H&P, Labs, Medications, Previous Orders, Radiology Changes from previous H/P or p: No Changes General: Per HPI Neurological: Weakness Respiratory: Shortness of breath Objective Vitals Vital Signs Date Time Temp Pulse Resp B/P (MAP) Pulse Ox O2 Delivery O2 Flow Rate FiO2 03/30/25 13:00 97.5 80 20 103/57 (72) 94 97.5 03/30/25 10:04 Nasal Cannula 4.0 03/30/25 10:04 36 Intake/Output Intake and Output 03/30/25 07:00 Intake Total 1020 ml Output Total 1350 ml Balance -330 ml Intake Oral 1020 ml Output Urine Total 1350 ml # Bowel Movements 1 General Appearance: Alert, Cooperative, No acute distress HEENT: Atraumatic, PERRLA, EOMI, Mucous membr. moist/pink Neck: Supple Lungs: Clear to auscultation, Normal air movement Cardiovascular: Regular rate, Normal S1, Normal S2, No murmurs, Gallops, Rubs Abdomen: Normal bowel sounds, Soft, No tenderness Neuro: Cranial nerves 3-12 NL Psych/Mental Status: Mental status NL Medications Current Medications Medications Dose Ordered Sig/Nic Route Start Time Stop Time Status Last Admin Dose Admin Ondansetron HCl 4 mg Q4HP PRN IV 03/23/25 11:00 Acetaminophen 650 mg Q6HP PRN PO 03/23/25 11:00 03/30/25 08:35 650 MG Ceftriaxone Sodium 50 ml @ 100 mls/hr DAILY@09 IV 03/23/25 11:00 03/30/25 08:22 100 MLS/HR Albuterol 2.5 mg Q4HWA [facility] 03/23/25 14:00 03/30/25 14:37 2.5 MG Ipratropium [place] 0.5 mg Q4HWA [facility] 03/23/25 14:00 03/30/25 14:37 0.5 MG Laboratory Results Laboratory Tests 03/29/25 06:56 Urinalysis Test 03/22/25 22:17 Urine Color Yellow (Yellow) Urine Clarity Clear (Clear) Urine pH 5.5 (5.0-9.0) Urine Specific [place] 1.020 (1.001-1.035) Urine Protein Trace (Negative) H Urine Ketones Negative (Negative) Urine Blood Negative /uL (Negative) Urine Nitrite 2+ (Negative) H Urine Bilirubin Negative (Negative) Urine Urobilinogen Normal mg/dL (Negative) Urine Leukocyte Esterase Negative /uL (Negative) Urine RBC <1 /hpf (0 - 3) Urine Microscopic WBC 2 /HPF (0-3) Urine Squamous Epithelial Cells Few /hpf (<5) Urine Amorphous Crystals Few /hpf (None Seen) Urine Bacteria Few /hpf (None Seen) H Urine Hyaline Casts Few /lpf (0 - 2) Urine Mucus Few (None Seen) Urine Glucose Normal mg/dL (Normal) Microbiology Microbiology Date/Time Source Procedure Growth Status 03/22/25 18:10 Blood Blood Culture - Final NO GROWTH AFTER 5 DAYS OF INCUBATION. Complete Labs and/or images reviewed: Labs reviewed by me, Image(s) reviewed by me Assessment/Plan Assessment/Plan Leukocytosis possibly PNA HUGO likely prerenal Right-sided pleural effusion Acute cystitis Acute on chronic COPD exacerbation rule out PE Interstitial airspace opacities which could represent sequela of pulmonary edema, atypical infection, chronic lung changes/disease. Bilateral pulmonary nodules that are calcified consistent with remote granulomatous disease. Extensive pulmonary calcified nodule consistent with remote granulomatous disease. Pulmonary soft tissue nodules up to 10 mm Small right pleural pleural effusion Tobacco use History of COPD History of AFib History of hypertension History of anxiety History of depression History of congenital heart disease History of AAA History of left shoulder surgery Plan Continuing current management. CT chest showed no PE. This had extensive emphysema on imaging studying. Continuing IV antibiotic Rocephin and Zithromax. Continuing with nebulizer. Pulmonology consulted for nodule of lung. We will follow up. Continuing with sliding scale insulin. Continuing with statin. Continue to wean down oxygen. Right now he on 5 L NC. Will try to wean it down to his baseline oxygen at home which is 3L We will consult physical therapist to get the patient out of bed and ambulate. 03/29/2025: pt to work with PT/OT for evaluation of SNF criteria. pt is weak and cannot walk on his own 03/30/2025: discussed with pt regarding the need for SNF. pt wants to go home. Son at bedside and would like to have pt evaluated for SNF This medical document was created using an electronic medical record system with [employer] direct computerized dictation system. Although this document has been carefully reviewed, there may still be some phonetic and typographical errors. These areas are purely typographical due to imperfections of the software programs, and do not reflect any compromise in the patient's medical care. Plan discussed with: Patient Date of Service: Mar 30, 2025 Billing Provider: LIZZETTE GOINS DO Common Visit Codes: [id number] INP/OBS CARE(HIGH) LIZZETTE GOINS DO Mar 30, 2025 14:52
--- NOTE | 2025-03-30 23:41 | DVHPN2 ---
Subjective DOS: 03/30/2025 Patient seen and examined at bedside. Remains on supplemental oxygen Overnight events reviewed. Reviewed: Care Plan, H&P, Labs, Medications, Previous Orders, Radiology Changes from previous H/P or p: No Changes General: Per HPI Respiratory: Shortness of breath Objective Vitals Vital Signs Date Time Temp Pulse Resp B/P (MAP) Pulse Ox O2 Delivery O2 Flow Rate FiO2 03/30/25 22:21 76 14 95 03/30/25 22:15 Nasal Cannula* 4 36 03/30/25 20:49 98.8 106/71 (83) 98.8 Intake/Output Intake and Output 03/30/25 07:00 Intake Total 1020 ml Output Total 1350 ml Balance -330 ml Intake Oral 1020 ml Output Urine Total 1350 ml # Bowel Movements 1 General Appearance: Alert, Cooperative, No acute distress HEENT: Atraumatic, PERRLA, EOMI, Mucous membr. moist/pink Neck: Supple Lungs: Clear to auscultation, Normal air movement Cardiovascular: Regular rate, Normal S1, Normal S2, No murmurs, Gallops, Rubs Abdomen: Normal bowel sounds, Soft, No tenderness Neuro: Cranial nerves 3-12 NL Psych/Mental Status: Mental status NL Medications Current Medications Medications Dose Ordered Sig/Nic Route Start Time Stop Time Status Last Admin Dose Admin Ondansetron HCl 4 mg Q4HP PRN IV 03/23/25 11:00 Acetaminophen 650 mg Q6HP PRN PO 03/23/25 11:00 03/30/25 08:35 650 MG Ceftriaxone Sodium 50 ml @ 100 mls/hr DAILY@09 IV 03/23/25 11:00 03/30/25 08:22 100 MLS/HR Albuterol 2.5 mg Q4HWA [facility] 03/23/25 14:00 03/30/25 22:15 2.5 MG Ipratropium [place] 0.5 mg Q4HWA [facility] 03/23/25 14:00 03/30/25 22:15 0.5 MG Laboratory Results Laboratory Tests 03/29/25 06:56 Urinalysis Test 03/22/25 22:17 Urine Color Yellow (Yellow) Urine Clarity Clear (Clear) Urine pH 5.5 (5.0-9.0) Urine Specific [place] 1.020 (1.001-1.035) Urine Protein Trace (Negative) H Urine Ketones Negative (Negative) Urine Blood Negative /uL (Negative) Urine Nitrite 2+ (Negative) H Urine Bilirubin Negative (Negative) Urine Urobilinogen Normal mg/dL (Negative) Urine Leukocyte Esterase Negative /uL (Negative) Urine RBC <1 /hpf (0 - 3) Urine Microscopic WBC 2 /HPF (0-3) Urine Squamous Epithelial Cells Few /hpf (<5) Urine Amorphous Crystals Few /hpf (None Seen) Urine Bacteria Few /hpf (None Seen) H Urine Hyaline Casts Few /lpf (0 - 2) Urine Mucus Few (None Seen) Urine Glucose Normal mg/dL (Normal) Microbiology Microbiology Date/Time Source Procedure Growth Status 03/22/25 18:10 Blood Blood Culture - Final NO GROWTH AFTER 5 DAYS OF INCUBATION. Complete Assessment/Plan Assessment/Plan Impression: Acute hypoxic respiratory failure 2/2 pneumonia and AE COPD Acute on chronic COPD exacerbation COPD/Emphysema Pneumonia likely GNR vs GPC Right pleural effusion Atelectasis, compressive Lung granulomas, pulmonary soft tissue nodules up to 10 mm Nicotine dependence Chronic Vertebral body T5 compression Events: Remains on supplemental oxygen, 4 LPM NC Taper O2 as tolerated Chest x-ray on 03/28/25 notable for right basilar opacities. Continue bronchodilators Complete antibiotic course Incentive spirometry DVT prophylaxis Physical therapy evaluation Disposition per hospitalist. Labs and imaging reviewed. Rest of plan as noted below. Plan Supplemental oxygen Keep o2 saturation above 92% Bronchodilators. IV antibiotics F/u cultures. IS for atelectasis Smoking cessation discussed greater than 10 minutes. Deferred NRT. Monitor hemoglobin DVT prophylaxis. Prognosis: Guarded given patient's multiple co-morbidities. Rest of plan per hospitalist and other consultants. Thank you, DAVID Burnett, for allowing me to participate in this patient's care. Further recommendations will depend on the patient's clinical course. Please do not hesitate to contact me if you have any questions or concerns. This medical document was created using an electronic medical record system with [employer] dictation system. Although these documentations are being carefully reviewed, there may still be some phonetic and typographical changes. The errors are purely typographical, due to imperfection on the software program, and do not reflect any compromise in the patient's medical care. Plan discussed with: Patient, Other (RN) Visit Coding Pulmonary Billing Provider: SIGIFREDO PADRON MD Date of Service if different f: Mar 30, 2025 Common Visit Codes: [id number] INP/OBS CARE(HIGH) SIGIFREDO PADRON MD Mar 30, 2025 23:41
[2025-03-31] VITALS (16 sets, daily range): BP systolic 100–108; BP diastolic 59–71; PULSE 56–82; RESP 16–20; TEMP 97.3–98.8; O2SAT 89–99
--- NOTE | 2025-03-31 14:40 | DVHPN2 ---
Progress Note - Dictate Date Seen: Mar 31, 2025 Medical Necessity Reason Pt with a Central, PICC or Fol: No vital signs Vital Sign Date Time Temp Pulse Resp B/P (MAP) Pulse Ox O2 Delivery O2 Flow Rate FiO2 03/31/25 14:15 56 16 99 03/31/25 14:09 Nasal Cannula* 4 36 03/31/25 12:47 97.5 103/63 (76) 97.5 Total Intake and Output 03/30/25 03/30/25 03/31/25 15:00 23:00 07:00 Intake Total 670 ml 660 ml Output Total 225 ml 400 ml Balance 445 ml 260 ml medications Current Medications Medications Dose Ordered Sig/Nic Route Start Time Stop Time Status Last Admin Dose Admin Ondansetron HCl 4 mg Q4HP PRN IV 03/23/25 11:00 Acetaminophen 650 mg Q6HP PRN PO 03/23/25 11:00 03/31/25 10:36 650 MG Ceftriaxone Sodium 50 ml @ 100 mls/hr DAILY@09 IV 03/23/25 11:00 03/31/25 10:39 100 MLS/HR Albuterol 2.5 mg Q4HWA [facility] 03/23/25 14:00 03/31/25 14:09 2.5 MG Ipratropium [place] 0.5 mg Q4HWA [facility] 03/23/25 14:00 03/31/25 14:09 0.5 MG laboratory and microbiology Laboratory Tests 03/29/25 06:56 Test 03/29/25 06:56 Range/Units Serum Glucose 92 74-106 mg/dL Assessment/Plan Acute hypoxic respiratory failure 2/2 pneumonia and AE COPD Acute on chronic COPD exacerbation COPD/Emphysema Pneumonia likely GNR vs GPC Right pleural effusion Atelectasis, compressive Lung granulomas, pulmonary soft tissue nodules up to 10 mm Nicotine dependence Chronic Vertebral body T5 compression Events: Remains on supplemental oxygen, 4 LPM [place] Taper O2 as tolerated Chest x-ray on 03/28/25 notable for right basilar opacities. Continue bronchodilators Complete antibiotic course Incentive spirometry DVT prophylaxis Physical therapy evaluation Disposition per hospitalist. Labs and imaging reviewed. Rest of plan as noted below. Plan Supplemental oxygen Keep o2 saturation above 92% Bronchodilators. IV antibiotics F/u cultures. IS for atelectasis Smoking cessation discussed greater than 10 minutes. Deferred NRT. Monitor hemoglobin DVT prophylaxis. Dietary Evaluation Review Recommendations by RD: Protein Supplementation Comments: 1) Initiate Ensure High Protein qd 2) Encourage optimal PO intake 3) Follow-up with cardiology and pulmonology 4) Continue to monitor I&O, labs, and skin integrity Expected Outcomes/Goals: 1) appetite and labs to improve 2) f/u in 3-5 days Plan discussed with: Patient AVERY WINKLER MD Mar 31, 2025 14:40
--- NOTE | 2025-03-31 15:12 | DVHPN2 ---
Reviewed: Care Plan, H&P, Labs, Medications, Previous Orders, Radiology Changes from previous H/P or p: No Changes General: Per HPI Respiratory: Shortness of breath Objective Vitals Vital Signs Date Time Temp Pulse Resp B/P (MAP) Pulse Ox O2 Delivery O2 Flow Rate FiO2 03/31/25 14:15 56 16 99 03/31/25 14:09 Nasal Cannula* 4 36 03/31/25 12:47 97.5 103/63 (76) 97.5 Intake/Output Intake and Output 03/31/25 07:00 Intake Total 1330 ml Output Total 625 ml Balance 705 ml Intake Oral 1280 ml IV Total 50 ml Output Urine Total 625 ml General Appearance: Alert, Cooperative, No acute distress HEENT: Atraumatic, PERRLA, EOMI, Mucous membr. moist/pink Neck: Supple Lungs: Clear to auscultation, Normal air movement Cardiovascular: Regular rate, Normal S1, Normal S2, No murmurs, Gallops, Rubs Abdomen: Normal bowel sounds, Soft, No tenderness Neuro: Cranial nerves 3-12 NL Psych/Mental Status: Mental status NL Medications Current Medications Medications Dose Ordered Sig/Nic Route Start Time Stop Time Status Last Admin Dose Admin Ondansetron HCl 4 mg Q4HP PRN IV 03/23/25 11:00 Acetaminophen 650 mg Q6HP PRN PO 03/23/25 11:00 03/31/25 10:36 650 MG Ceftriaxone Sodium 50 ml @ 100 mls/hr DAILY@09 IV 03/23/25 11:00 03/31/25 10:39 100 MLS/HR Albuterol 2.5 mg Q4HWA [facility] 03/23/25 14:00 03/31/25 14:09 2.5 MG Ipratropium [place] 0.5 mg Q4HWA [facility] 03/23/25 14:00 03/31/25 14:09 0.5 MG Laboratory Results Laboratory Tests 03/29/25 06:56 Urinalysis Test 03/22/25 22:17 Urine Color Yellow (Yellow) Urine Clarity Clear (Clear) Urine pH 5.5 (5.0-9.0) Urine Specific [place] 1.020 (1.001-1.035) Urine Protein Trace (Negative) H Urine Ketones Negative (Negative) Urine Blood Negative /uL (Negative) Urine Nitrite 2+ (Negative) H Urine Bilirubin Negative (Negative) Urine Urobilinogen Normal mg/dL (Negative) Urine Leukocyte Esterase Negative /uL (Negative) Urine RBC <1 /hpf (0 - 3) Urine Microscopic WBC 2 /HPF (0-3) Urine Squamous Epithelial Cells Few /hpf (<5) Urine Amorphous Crystals Few /hpf (None Seen) Urine Bacteria Few /hpf (None Seen) H Urine Hyaline Casts Few /lpf (0 - 2) Urine Mucus Few (None Seen) Urine Glucose Normal mg/dL (Normal) Microbiology Microbiology Date/Time Source Procedure Growth Status 03/22/25 18:10 Blood Blood Culture - Final NO GROWTH AFTER 5 DAYS OF INCUBATION. Complete Assessment/Plan Assessment/Plan Leukocytosis possibly PNA HUGO likely prerenal Right-sided pleural effusion Acute cystitis Acute on chronic COPD exacerbation rule out PE Interstitial airspace opacities which could represent sequela of pulmonary edema, atypical infection, chronic lung changes/disease. Bilateral pulmonary nodules that are calcified consistent with remote granulomatous disease. Extensive pulmonary calcified nodule consistent with remote granulomatous disease. Pulmonary soft tissue nodules up to 10 mm Small right pleural pleural effusion Tobacco use History of COPD History of AFib History of hypertension History of anxiety History of depression History of congenital heart disease History of AAA History of left shoulder surgery Plan Continuing current management. CT chest showed no PE. This had extensive emphysema on imaging studying. Continuing IV antibiotic Rocephin and Zithromax. Continuing with nebulizer. Pulmonology consulted for nodule of lung. We will follow up. Continuing with sliding scale insulin. Continuing with statin. Continue to wean down oxygen. Right now he on 5 L NC. Will try to wean it down to his baseline oxygen at home which is 3L We will consult physical therapist to get the patient out of bed and ambulate. 03/29/2025: pt to work with PT/OT for evaluation of SNF criteria. pt is weak and cannot walk on his own 03/30/2025: discussed with pt regarding the need for SNF. pt wants to go home. Son at bedside and would like to have pt evaluated for SNF 03/31/2025: pt is evaluated by PT. pt needs SNF per PT. requested case management to assist with finding SNF This medical document was created using an electronic medical record system with [employer] direct computerized dictation system. Although this document has been carefully reviewed, there may still be some phonetic and typographical errors. These areas are purely typographical due to imperfections of the software programs, and do not reflect any compromise in the patient's medical care. Plan discussed with: Patient My Orders Orders - LIZZETTE GOINS DO Procedure Category Date Status Time * Paper Box Maker CONS 03/30/25 Transmitted Consult Date of Service: Mar 31, 2025 Billing Provider: LIZZETTE GOINS DO Common Visit Codes: [id number] INP/OBS CARE(HIGH) LIZZETTE GOINS DO Mar 31, 2025 15:12
[2025-04-01] VITALS (23 sets, daily range): BP systolic 91–123; BP diastolic 51–78; PULSE 62–79; RESP 14–22; TEMP 97.5–98.1; O2SAT 91–99
--- NOTE | 2025-04-01 19:02 | DVHPN2 ---
Progress Note - Dictate Date Seen: Apr 01, 2025 Medical Necessity Reason Pt with a Central, PICC or Fol: No vital signs Vital Sign Date Time Temp Pulse Resp B/P (MAP) Pulse Ox O2 Delivery O2 Flow Rate FiO2 04/01/25 18:40 71 18 95 04/01/25 18:34 Nasal Cannula* 3 32 04/01/25 18:26 97.7 04/01/25 16:40 102/51 (68) Total Intake and Output 03/31/25 03/31/25 04/01/25 15:00 23:00 07:00 Intake Total 120 ml 680 ml 250 ml Output Total 775 ml 550 ml 400 ml Balance -655 ml 130 ml -150 ml medications Current Medications Medications Dose Ordered Sig/Nic Route Start Time Stop Time Status Last Admin Dose Admin Ondansetron HCl 4 mg Q4HP PRN IV 03/23/25 11:00 Acetaminophen 650 mg Q6HP PRN PO 03/23/25 11:00 04/01/25 17:26 650 MG Ceftriaxone Sodium 50 ml @ 100 mls/hr DAILY@09 IV 03/23/25 11:00 04/01/25 09:11 100 MLS/HR Albuterol 2.5 mg Q4HWA [facility] 03/23/25 14:00 04/01/25 18:35 2.5 MG Ipratropium [place] 0.5 mg Q4HWA [facility] 03/23/25 14:00 04/01/25 18:35 0.5 MG laboratory and microbiology Laboratory Tests 03/29/25 06:56 Test 03/29/25 06:56 Range/Units Serum Glucose 92 74-106 mg/dL Assessment/Plan Acute hypoxic respiratory failure 2/2 pneumonia and AE COPD Acute on chronic COPD exacerbation COPD/Emphysema Pneumonia likely GNR vs GPC Right pleural effusion Atelectasis, compressive Lung granulomas, pulmonary soft tissue nodules up to 10 mm Nicotine dependence Chronic Vertebral body T5 compression Events: Remains on supplemental oxygen, 4 LPM NC Taper O2 as tolerated Chest x-ray on 03/28/25 notable for right basilar opacities. Continue bronchodilators Complete antibiotic course Incentive spirometry DVT prophylaxis Physical therapy evaluation Disposition per hospitalist. Labs and imaging reviewed. Rest of plan as noted below. Plan Supplemental oxygen Keep o2 saturation above 92% Bronchodilators. IV antibiotics F/u cultures. IS for atelectasis Smoking cessation discussed greater than 10 minutes. Deferred NRT. Monitor hemoglobin DVT prophylaxis. Dietary Evaluation Review Recommendations by RD: Protein Supplementation Comments: 1) Initiate Ensure High Protein qd 2) Encourage optimal PO intake 3) Follow-up with cardiology and pulmonology 4) Continue to monitor I&O, labs, and skin integrity Expected Outcomes/Goals: 1) appetite and labs to improve 2) f/u in 3-5 days Plan discussed with: Patient AVERY WINKLER MD Apr 01, 2025 19:02
[2025-04-02] VITALS (19 sets, daily range): BP systolic 99–123; BP diastolic 54–80; PULSE 59–77; RESP 15–20; TEMP 97.5–98.1; O2SAT 90–99
--- NOTE | 2025-04-02 15:05 | DVHPN2 ---
Progress Note - Dictate Date Seen: Apr 02, 2025 Medical Necessity Reason Pt with a Central, PICC or Fol: No vital signs Vital Sign Date Time Temp Pulse Resp B/P (MAP) Pulse Ox O2 Delivery O2 Flow Rate FiO2 04/02/25 13:33 69 20 93 04/02/25 13:25 Nasal Cannula 4.0 04/02/25 13:25 36 04/02/25 13:00 97.7 99/70 (80) 97.7 Total Intake and Output 04/01/25 04/01/25 04/02/25 15:00 23:00 07:00 Intake Total 945 ml Output Total 425 ml 800 ml Balance 520 ml -800 ml medications Current Medications Medications Dose Ordered Sig/Nic Route Start Time Stop Time Status Last Admin Dose Admin Ondansetron HCl 4 mg Q4HP PRN IV 03/23/25 11:00 Acetaminophen 650 mg Q6HP PRN PO 03/23/25 11:00 04/02/25 10:17 650 MG Ceftriaxone Sodium 50 ml @ 100 mls/hr DAILY@09 IV 03/23/25 11:00 04/02/25 09:13 100 MLS/HR Albuterol 2.5 mg Q4HWA [facility] 03/23/25 14:00 04/02/25 13:25 2.5 MG Ipratropium [place] 0.5 mg Q4HWA [facility] 03/23/25 14:00 04/02/25 13:25 0.5 MG laboratory and microbiology Laboratory Tests 03/29/25 06:56 Test 03/29/25 06:56 Range/Units Serum Glucose 92 74-106 mg/dL Assessment/Plan Acute hypoxic respiratory failure 2/2 pneumonia and AE COPD Acute on chronic COPD exacerbation COPD/Emphysema Pneumonia likely GNR vs GPC Right pleural effusion Atelectasis, compressive Lung granulomas, pulmonary soft tissue nodules up to 10 mm Nicotine dependence Chronic Vertebral body T5 compression Events: Low oxygen requirements On 4 liters nasal cannula No distress Chest x-ray on 03/28/25 notable for right basilar opacities. MAnagement Continue bronchodilators Complete antibiotic course Incentive spirometry DVT prophylaxis Physical therapy evaluation Disposition per hospitalist. Labs and imaging reviewed. Rest of plan as noted below. Plan Supplemental oxygen Keep o2 saturation above 92% Bronchodilators. IV antibiotics F/u cultures. IS for atelectasis Monitor hemoglobin DVT prophylaxis. Okay to discharge from pulmonary standpoint Dietary Evaluation Review Recommendations by RD: Protein Supplementation Comments: 1) Initiate Ensure High Protein qd 2) Encourage optimal PO intake 3) Follow-up with cardiology and pulmonology 4) Continue to monitor I&O, labs, and skin integrity Expected Outcomes/Goals: 1) appetite and labs to improve 2) f/u in 3-5 days Plan discussed with: Patient AVERY WINKLER MD Apr 02, 2025 15:05
[2025-04-03] VITALS (15 sets, daily range): BP systolic 97–121; BP diastolic 60–81; PULSE 58–94; RESP 15–20; TEMP 97.6–97.8; O2SAT 90–94
--- NOTE | 2025-04-03 12:06 | DVHPN2 ---
Reviewed: Care Plan, H&P, Labs, Medications, Previous Orders, Radiology Changes from previous H/P or p: No Changes General: Per HPI Neurological: Weakness Respiratory: Shortness of breath Objective Vitals Vital Signs Date Time Temp Pulse Resp B/P (MAP) Pulse Ox O2 Delivery O2 Flow Rate FiO2 04/03/25 10:54 69 20 94 04/03/25 10:48 Nasal Cannula 3.0 04/03/25 10:48 32 04/03/25 09:00 97.6 121/81 (94) 97.6 Intake/Output Intake and Output 04/03/25 07:00 Intake Total 1570 ml Output Total 1300 ml Balance 270 ml Intake Oral 1570 ml Output Urine Total 1300 ml General Appearance: Alert, Cooperative, No acute distress HEENT: Atraumatic, PERRLA, EOMI, Mucous membr. moist/pink Neck: Supple Lungs: Clear to auscultation, Normal air movement Cardiovascular: Regular rate, Normal S1, Normal S2, No murmurs, Gallops, Rubs Abdomen: Normal bowel sounds, Soft, No tenderness Neuro: Cranial nerves 3-12 NL Psych/Mental Status: Mental status NL Medications Current Medications Medications Dose Ordered Sig/Nic Route Start Time Stop Time Status Last Admin Dose Admin Ondansetron HCl 4 mg Q4HP PRN IV 03/23/25 11:00 Acetaminophen 650 mg Q6HP PRN PO 03/23/25 11:00 04/02/25 21:35 650 MG Ceftriaxone Sodium 50 ml @ 100 mls/hr DAILY@09 IV 03/23/25 11:00 04/03/25 08:33 100 MLS/HR Albuterol 2.5 mg Q4HWA NEB 03/23/25 14:00 04/03/25 10:48 2.5 MG Ipratropium [place] 0.5 mg Q4HWA NEB 03/23/25 14:00 04/03/25 10:48 0.5 MG Laboratory Results Laboratory Tests 03/29/25 06:56 Urinalysis Test 03/22/25 22:17 Urine Color Yellow (Yellow) Urine Clarity Clear (Clear) Urine pH 5.5 (5.0-9.0) Urine Specific [place] 1.020 (1.001-1.035) Urine Protein Trace (Negative) H Urine Ketones Negative (Negative) Urine Blood Negative /uL (Negative) Urine Nitrite 2+ (Negative) H Urine Bilirubin Negative (Negative) Urine Urobilinogen Normal mg/dL (Negative) Urine Leukocyte Esterase Negative /uL (Negative) Urine RBC <1 /hpf (0 - 3) Urine Microscopic WBC 2 /HPF (0-3) Urine Squamous Epithelial Cells Few /hpf (<5) Urine Amorphous Crystals Few /hpf (None Seen) Urine Bacteria Few /hpf (None Seen) H Urine Hyaline Casts Few /lpf (0 - 2) Urine Mucus Few (None Seen) Urine Glucose Normal mg/dL (Normal) Microbiology Microbiology Date/Time Source Procedure Growth Status 03/22/25 18:10 Blood Blood Culture - Final NO GROWTH AFTER 5 DAYS OF INCUBATION. Complete Labs and/or images reviewed: Labs reviewed by me, Image(s) reviewed by me Assessment/Plan Assessment/Plan Leukocytosis possibly PNA HUGO likely prerenal Right-sided pleural effusion Acute cystitis Acute on chronic COPD exacerbation rule out PE Interstitial airspace opacities which could represent sequela of pulmonary edema, atypical infection, chronic lung changes/disease. Bilateral pulmonary nodules that are calcified consistent with remote granulomatous disease. Extensive pulmonary calcified nodule consistent with remote granulomatous disease. Pulmonary soft tissue nodules up to 10 mm Small right pleural pleural effusion Tobacco use History of COPD History of AFib History of hypertension History of anxiety History of depression History of congenital heart disease History of AAA History of left shoulder surgery Plan Continuing current management. CT chest showed no PE. This had extensive emphysema on imaging studying. Continuing IV antibiotic Rocephin and Zithromax. Continuing with nebulizer. Pulmonology consulted for nodule of lung. We will follow up. Continuing with sliding scale insulin. Continuing with statin. Continue to wean down oxygen. Right now he on 5 L NC. Will try to wean it down to his baseline oxygen at home which is 3L We will consult physical therapist to get the patient out of bed and ambulate. 03/29/2025: pt to work with PT/OT for evaluation of SNF criteria. pt is weak and cannot walk on his own 03/30/2025: discussed with pt regarding the need for SNF. pt wants to go home. Son at bedside and would like to have pt evaluated for SNF 03/31/2025: pt is evaluated by PT. pt needs SNF per PT. requested case management to assist with finding SNF 04/01/2025: pending SNF placement This medical document was created using an electronic medical record system with [employer] direct computerized dictation system. Although this document has been carefully reviewed, there may still be some phonetic and typographical errors. These areas are purely typographical due to imperfections of the software programs, and do not reflect any compromise in the patient's medical care. Plan discussed with: Patient My Orders Orders - LIZZETTE GOINS DO Procedure Category Date Status Time Discharge DISCHARGE 04/03/25 Transmitted 11:54 Date of Service: Apr 01, 2025 Billing Provider: LIZZETTE GOINS DO Common Visit Codes: [id number] INP/OBS CARE(HIGH) LIZZETTE GOINS DO Apr 03, 2025 12:06
--- NOTE | 2025-04-03 12:07 | DVHPN2 ---
Reviewed: Care Plan, H&P, Labs, Medications, Previous Orders, Radiology Changes from previous H/P or p: No Changes General: Per HPI Neurological: Weakness Respiratory: Shortness of breath Objective Vitals Vital Signs Date Time Temp Pulse Resp B/P (MAP) Pulse Ox O2 Delivery O2 Flow Rate FiO2 04/03/25 10:54 69 20 94 04/03/25 10:48 Nasal Cannula 3.0 04/03/25 10:48 32 04/03/25 09:00 97.6 121/81 (94) 97.6 Intake/Output Intake and Output 04/03/25 07:00 Intake Total 1570 ml Output Total 1300 ml Balance 270 ml Intake Oral 1570 ml Output Urine Total 1300 ml General Appearance: Alert, Cooperative, No acute distress HEENT: Atraumatic, PERRLA, EOMI, Mucous membr. moist/pink Neck: Supple Lungs: Clear to auscultation, Normal air movement Cardiovascular: Regular rate, Normal S1, Normal S2, No murmurs, Gallops, Rubs Abdomen: Normal bowel sounds, Soft, No tenderness Neuro: Cranial nerves 3-12 NL Psych/Mental Status: Mental status NL Medications Current Medications Medications Dose Ordered Sig/Nic Route Start Time Stop Time Status Last Admin Dose Admin Ondansetron HCl 4 mg Q4HP PRN IV 03/23/25 11:00 Acetaminophen 650 mg Q6HP PRN PO 03/23/25 11:00 04/02/25 21:35 650 MG Ceftriaxone Sodium 50 ml @ 100 mls/hr DAILY@09 IV 03/23/25 11:00 04/03/25 08:33 100 MLS/HR Albuterol 2.5 mg Q4HWA NEB 03/23/25 14:00 04/03/25 10:48 2.5 MG Ipratropium [place] 0.5 mg Q4HWA NEB 03/23/25 14:00 04/03/25 10:48 0.5 MG Laboratory Results Laboratory Tests 03/29/25 06:56 Urinalysis Test 03/22/25 22:17 Urine Color Yellow (Yellow) Urine Clarity Clear (Clear) Urine pH 5.5 (5.0-9.0) Urine Specific [place] 1.020 (1.001-1.035) Urine Protein Trace (Negative) H Urine Ketones Negative (Negative) Urine Blood Negative /uL (Negative) Urine Nitrite 2+ (Negative) H Urine Bilirubin Negative (Negative) Urine Urobilinogen Normal mg/dL (Negative) Urine Leukocyte Esterase Negative /uL (Negative) Urine RBC <1 /hpf (0 - 3) Urine Microscopic WBC 2 /HPF (0-3) Urine Squamous Epithelial Cells Few /hpf (<5) Urine Amorphous Crystals Few /hpf (None Seen) Urine Bacteria Few /hpf (None Seen) H Urine Hyaline Casts Few /lpf (0 - 2) Urine Mucus Few (None Seen) Urine Glucose Normal mg/dL (Normal) Microbiology Microbiology Date/Time Source Procedure Growth Status 03/22/25 18:10 Blood Blood Culture - Final NO GROWTH AFTER 5 DAYS OF INCUBATION. Complete Assessment/Plan Assessment/Plan Leukocytosis possibly PNA HUGO likely prerenal Right-sided pleural effusion Acute cystitis Acute on chronic COPD exacerbation rule out PE Interstitial airspace opacities which could represent sequela of pulmonary edema, atypical infection, chronic lung changes/disease. Bilateral pulmonary nodules that are calcified consistent with remote granulomatous disease. Extensive pulmonary calcified nodule consistent with remote granulomatous disease. Pulmonary soft tissue nodules up to 10 mm Small right pleural pleural effusion Tobacco use History of COPD History of AFib History of hypertension History of anxiety History of depression History of congenital heart disease History of AAA History of left shoulder surgery Plan Continuing current management. CT chest showed no PE. This had extensive emphysema on imaging studying. Continuing IV antibiotic Rocephin and Zithromax. Continuing with nebulizer. Pulmonology consulted for nodule of lung. We will follow up. Continuing with sliding scale insulin. Continuing with statin. Continue to wean down oxygen. Right now he on 5 L NC. Will try to wean it down to his baseline oxygen at home which is 3L We will consult physical therapist to get the patient out of bed and ambulate. 03/29/2025: pt to work with PT/OT for evaluation of SNF criteria. pt is weak and cannot walk on his own 03/30/2025: discussed with pt regarding the need for SNF. pt wants to go home. Son at bedside and would like to have pt evaluated for SNF 03/31/2025: pt is evaluated by PT. pt needs SNF per PT. requested case management to assist with finding SNF 04/01/2025: pending SNF placement 04/02/2025: pending SNF placement. pt agreed to SNF This medical document was created using an electronic medical record system with [employer] direct computerized dictation system. Although this document has been carefully reviewed, there may still be some phonetic and typographical errors. These areas are purely typographical due to imperfections of the software programs, and do not reflect any compromise in the patient's medical care. Plan discussed with: Patient My Orders Orders - LIZZETTE GOINS DO Procedure Category Date Status Time Discharge DISCHARGE 04/03/25 Transmitted 11:54 Date of Service: Apr 02, 2025 Billing Provider: LIZZETTE GOINS DO Common Visit Codes: [id number] INP/OBS CARE(HIGH) LIZZETTE GOINS DO Apr 03, 2025 12:07
--- NOTE | 2025-04-03 12:08 | DVHDS2 ---
Discharge Summary Date of Admission Mar 23, 2025 at 10:46 Date of Discharge: Apr 03, 2025 Labs/Diagnostic Data: Laboratory Results Test 03/29/25 06:56 03/24/25 02:51 03/23/25 11:15 03/23/25 05:29 White Blood Count 8.3 10^3/uL (4.4-10.8) Red Blood Count 4.02 10^6/uL (4.5-5.90) Hemoglobin 13.6 g/dL (13.5-17.5) Hematocrit 39.4 % (41.0-53.0) Mean Corpuscular Volume 97.9 fL (80.0-100.0) Mean Corpuscular Hemoglobin 33.8 pg (28.0-32.0) Mean Corpuscular Hemoglobin Concent 34.5 g/dL (32.0-36.0) Red Cell Distribution Width 13.4 % (11.8-14.3) Platelet Count 406 10^3/uL (140-450) Mean Platelet Volume 7.5 fL (6.9-10.8) Neutrophils (%) (Auto) 80.5 % (37.0-80.0) Lymphocytes (%) (Auto) 9.0 % (10.0-50.0) Monocytes (%) (Auto) 9.3 % (0.0-12.0) Eosinophils (%) (Auto) 0.8 % (0.0-7.0) Basophils (%) (Auto) 0.4 % (0.0-2.0) Neutrophils # (Auto) 6.7 10 ^3/uL (1.6-8.6) Lymphocytes # (Auto) 0.7 10 ^3/uL (0.4-5.4) Monocytes # (Auto) 0.8 10 ^3/uL (0-1.3) Eosinophils # (Auto) 0.1 10 ^3/uL (0-0.8) Basophils # (Auto) 0 10 ^3/uL (0-0.2) Nucleated Red Blood Cells 0.0 % Sodium Level 136 mmol/L (136-145) Potassium Level 5.0 mmol/L (3.5-5.1) Chloride Level 97 mmol/L (98-107) Carbon Dioxide Level 29 mmol/L (20-31) Anion Gap 10 (5-15) Blood Urea Nitrogen 18 mg/dL (9-23) Creatinine 0.96 mg/dL (0.700-1.30) Glomerular Filtration Rate Calc 82 mL/min (>90) BUN/Creatinine Ratio 18.8 (10.0-20.0) Serum Glucose 92 mg/dL (74-106) Calcium Level 9.7 mg/dL (8.7-10.4) Total Bilirubin 0.8 mg/dL (0.2-1.0) Aspartate Amino Transferase (AST) 25 U/L (13-40) Alanine Aminotransferase (ALT) 19 U/L (7-40) Alkaline Phosphatase 69 U/L (46-116) Total Protein 6.8 g/dL (5.7-8.2) Albumin 3.6 g/dL (3.2-4.8) D-Dimer, Quantitative 1.49 mg/L FEU (0.0-0.49) Aspergillus flavus Antibody Negative (Neg:<1:1) Aspergillus fumigatus Antibody Negative (Neg:<1:1) Aspergillus niger Antibody Negative (Neg:<1:1) SARS-CoV-2 Antigen (Rapid) Negative (NEGATIVE) Test 03/22/25 22:17 03/22/25 20:57 03/22/25 18:10 Urine Color Yellow (Yellow) Urine Clarity Clear (Clear) Urine pH 5.5 (5.0-9.0) Urine Specific [place] 1.020 (1.001-1.035) Urine Protein Trace (Negative) Urine Ketones Negative (Negative) Urine Blood Negative /uL (Negative) Urine Nitrite 2+ (Negative) Urine Bilirubin Negative (Negative) Urine Urobilinogen Normal mg/dL (Negative) Urine Leukocyte Esterase Negative /uL (Negative) Urine RBC <1 /hpf (0 - 3) Urine Microscopic WBC 2 /HPF (0-3) Urine Squamous Epithelial Cells Few /hpf (<5) Urine Amorphous Crystals Few /hpf (None Seen) Urine Bacteria Few /hpf (None Seen) Urine Hyaline Casts Few /lpf (0 - 2) Urine Mucus Few (None Seen) Urine Glucose Normal mg/dL (Normal) Troponin I High Sensitivity 5 ng/L (</=54) Lactic Acid Level 1.1 mmol/L (0.4-2.0) B-Type Natriuretic Peptide 48.78 pg/mL (0-100) Other Laboratory Tests 03/29/25 06:56 Brief Hx & Hospital Course: Leukocytosis possibly PNA HUGO likely prerenal Right-sided pleural effusion Acute cystitis Acute on chronic COPD exacerbation rule out PE Interstitial airspace opacities which could represent sequela of pulmonary edema, atypical infection, chronic lung changes/disease. Bilateral pulmonary nodules that are calcified consistent with remote granulomatous disease. Extensive pulmonary calcified nodule consistent with remote granulomatous disease. Pulmonary soft tissue nodules up to 10 mm Small right pleural pleural effusion Tobacco use History of COPD History of AFib History of hypertension History of anxiety History of depression History of congenital heart disease History of AAA History of left shoulder surgery Plan Continuing current management. CT chest showed no PE. This had extensive emphysema on imaging studying. Continuing IV antibiotic Rocephin and Zithromax. Continuing with nebulizer. Pulmonology consulted for nodule of lung. We will follow up. Continuing with sliding scale insulin. Continuing with statin. Continue to wean down oxygen. Right now he on 5 L NC. Will try to wean it down to his baseline oxygen at home which is 3L We will consult physical therapist to get the patient out of bed and ambulate. 03/29/2025: pt to work with PT/OT for evaluation of SNF criteria. pt is weak and cannot walk on his own 03/30/2025: discussed with pt regarding the need for SNF. pt wants to go home. Son at bedside and would like to have pt evaluated for SNF 03/31/2025: pt is evaluated by PT. pt needs SNF per PT. requested case management to assist with finding SNF 04/01/2025: pending SNF placement 04/02/2025: pending SNF placement. pt agreed to SNF 04/03/2025: discharged to SNF This medical document was created using an electronic medical record system with [employer] direct computerized dictation system. Although this document has been carefully reviewed, there may still be some phonetic and typographical errors. These areas are purely typographical due to imperfections of the software programs, and do not reflect any compromise in the patient's medical care. Condition at Discharge: Fair Final Diagnosis/Problems List see above Discharge Disposition: Custodial Facility Discharge Instruct/Medications Diet: Cardiac 2g Na,low cholest Activity: No Restrictions, As Tolerated Discharge Statement: "Patient was advised to return to the ER or call 911 if any headaches, dizziness, shortness of breath, chest pain, abdominal pain, bleeding, fevers, or worsening of medical condition. Patient was counseled about treatment plan, medications, possible side effects, patientverbalized understanding. All questions were answered to the best of my ability. This discharge took greater then 30 minutes in planning, reviewing documentation, counseling the patient, and discussing with other team members." ASSESSMENT ASSESSMENT Assessment Date of Service: Apr 03, 2025 Billing Provider: LIZZETTE GOINS DO Common Visit Codes: [id number] DISCH DAY >30min LIZZETTE GOINS DO Apr 03, 2025 12:08
[2025-04-03] MEDS ORDERED: HYDROmorphone HCL 2 MG/ML VL/or syr IV PRN (16:15)
[2025-04-03] MEDS ORDERED: HYDROcodone-ACET 5/325MG TAB PO PRN (16:30)
[2025-04-03] MEDS: HYDROmorphone HCL 2 MG/ML VL/or syr IV PRN (17:08)
[2025-04-03] MEDS: PNEUMOCOCCAL VACC POLYS 25 MCG/0.5 ML VIAL IM ONE (17:14)
--- NOTE | 2025-04-03 18:06 | DVHPN2 ---
Progress Note - Dictate Date Seen: Apr 03, 2025 Medical Necessity Reason Pt with a Central, PICC or Fol: No vital signs Vital Sign Date Time Temp Pulse Resp B/P (MAP) Pulse Ox O2 Delivery O2 Flow Rate FiO2 04/03/25 17:08 76 17 101/72 04/03/25 17:00 97.7 94 97.7 04/03/25 13:52 Nasal Cannula 3.0 04/03/25 13:52 32 Total Intake and Output 04/02/25 04/02/25 04/03/25 15:00 23:00 07:00 Intake Total 720 ml 850 ml Output Total 500 ml 800 ml Balance 220 ml 50 ml medications Current Medications Medications Dose Ordered Sig/Nic Route Start Time Stop Time Status Last Admin Dose Admin Ondansetron HCl 4 mg Q4HP PRN IV 03/23/25 11:00 Acetaminophen 650 mg Q6HP PRN PO 03/23/25 11:00 04/03/25 14:44 650 MG Albuterol 2.5 mg Q4HWA NEB 03/23/25 14:00 04/03/25 13:52 2.5 MG Ipratropium [place] 0.5 mg Q4HWA NEB 03/23/25 14:00 04/03/25 13:52 0.5 MG Hydromorphone HCl 0.25 mg Q6HP PRN IV 04/03/25 16:30 04/03/25 17:08 0.25 MG laboratory and microbiology Laboratory Tests 03/29/25 06:56 Test 03/29/25 06:56 Range/Units Serum Glucose 92 74-106 mg/dL Assessment/Plan Acute hypoxic respiratory failure 2/2 pneumonia and AE COPD Acute on chronic COPD exacerbation COPD/Emphysema Pneumonia likely GNR vs GPC Right pleural effusion Atelectasis, compressive Lung granulomas, pulmonary soft tissue nodules up to 10 mm Nicotine dependence Chronic Vertebral body T5 compression Events: Low oxygen requirements On 4 liters nasal cannula No acute events Labs and imaging reviewed Plan Supplemental oxygen Keep o2 saturation above 92% Bronchodilators. IV antibiotics F/u cultures. IS for atelectasis Monitor hemoglobin DVT prophylaxis. Okay to discharge from pulmonary standpoint Dietary Evaluation Review Recommendations by RD: Protein Supplementation Comments: 1) Initiate Ensure High Protein qd 2) Encourage optimal PO intake 3) Follow-up with cardiology and pulmonology 4) Continue to monitor I&O, labs, and skin integrity Expected Outcomes/Goals: 1) appetite and labs to improve 2) f/u in 3-5 days Plan discussed with: Patient AVERY WINKLER MD Apr 03, 2025 18:06
== END 2025-04-03 17:05 | DRG 871 ==
LOC: ER 16:24 → OVERFLOW 03-23 10:46 → WEST WING 03-23 12:54
PROVIDERS: ADMIT Internal Medicine; ATTEND Internal Medicine
DX: A41.59 Other Gram-negative sepsis (principal); J15.69 Pneumonia due to other Gram-negative bacteria; J96.21 Acute and chronic respiratory failure with hypoxia; J15.9 Unspecified bacterial pneumonia; J90 Pleural effusion, not elsewhere classified; R64 Cachexia; N17.9 Acute kidney failure, unspecified; N30.00 Acute cystitis without hematuria; J44.0 Chronic obstructive pulmonary disease with (acute) lower respiratory infection; J98.11 Atelectasis; J44.1 Chronic obstructive pulmonary disease with (acute) exacerbation; Z68.1 Body mass index [BMI] 19.9 or less, adult; J84.10 Pulmonary fibrosis, unspecified; Z99.81 Dependence on supplemental oxygen; F32.A Depression, unspecified; I10 Essential (primary) hypertension; J43.9 Emphysema, unspecified; K21.9 Gastro-esophageal reflux disease without esophagitis; I48.91 Unspecified atrial fibrillation; F41.9 Anxiety disorder, unspecified; F17.210 Nicotine dependence, cigarettes, uncomplicated; Z86.79 Personal history of other diseases of the circulatory system; Z82.49 Family history of ischemic heart disease and other diseases of the circulatory system; Z79.899 Other long term (current) drug therapy
CPT/HCPCS: 36415; 71045; 71250; 73562; 80048; 80053; 81001; 83605; 83880; 84484; 85025; 85379; 86606; 87040; 87426; 93005; 94640; 96365; 97110; 97116; 97163; 97530; 99291; 99292; G0378